=== PATIENT | male | born 1955 | race Caucasian/White ===

== ENCOUNTER → 2017-01-14 | Outpatient (CLI) | payer MEDICARE ==
[~2017-01-14] MED LIST: AMLO1CAP31 PO; ASP325TEC PO; ATOR20TA66 PO; CARV25TA PO; HYDR-3714 PO; HYDR25TA4 PO; MECL-124 PO; MULT VIT; OMEP-10 GT; ONDA8TAB13 PO; REGADENOSON 0.4 MG/5 ML SYR (LEXISCAN) IV ONE; TRAM50TA2 PO; VIT B
--- OUTSIDE RECORDS SUMMARY | 2017-01-14 10:32 | XMS REPORT | Continuity of Care Document ---
Author Author [facility] Organization [facility] Address Unknown Phone Unavailable Care Team Providers Care Mattress Spring Encaser Name Role Phone NO, LOCAL PHYSICIAN PCP Unavailable Insurance Providers Payer Name Policy Number Subscriber Name Relationship [facility] [id number] Nicole Rayo Self / Same As Patient Advance Directives Directive Response Recorded Date/Time Advance Directives No 03/20/15 12:33pm Resuscitation Status Full Code 03/20/15 12:33pm Problems Medical Problems Problem Onset Date Status Minor head injury without loss of consciousness Unknown Active Vertigo Unknown Active Volume depletion Unknown Active Medications Medication Dose Route Sig Days/Qty Instructions Order Date Discontinued Date Status Aspirin 325 Mg PO DAILY 09/09/14 Active Carvedilol (Coreg) 1 Each PO TWICE A DAY 09/09/14 Active Hydrochlorothiazide 25 Mg PO DAILY 09/09/14 Active Atorvastatin 40 Mg PO 09/09/14 Active Amlodipine/Benazepril HCl 1 Each PO DAILY 09/09/14 Active [Mult Vit] 09/09/14 Active Omeprazole 20 Mg GT DAILY 09/09/14 Active [Vit B] 09/09/14 Active Meclizine HCl 1 Tab PO QID PRN PRN VERTIGO 20 Qty 03/20/15 Active Ondansetron 8 Mg PO EVERY 6 HOURS PRN NAUSEA/VOMITING 10 Qty 03/20/15 Active Acetaminophen/Hydrocodone Bitart 1 Each PO Q4HR PRN PRN PAIN 14 Qty 15 03/20/15 Discontinued Tramadol Hcl 50 Mg PO EVERY 4HRS PRN PAIN 14 Qty 03/20/15 Active Social History Social History Problem Response Recorded Date/Time Alcohol Use Occasionally Uses 03/20/2015 12:33pm Recreational Drug Use No 03/20/2015 12:33pm Recent Foreign Travel No 03/20/2015 12:30pm Recent Infectious Disease Exposure No 03/20/2015 12:30pm Hospitalization with Isolation Denies 03/20/2015 12:30pm Smoking Status Current Everyday Smoker 03/20/2015 12:33pm Query Response Start Date Stop Date Smoking Status Current Everyday Smoker Hospital Discharge Instructions No hospital discharge instructions. Plan of Care No plan of care. Functional Status No functional status results. Allergies, Adverse Reactions, Alerts Allergen Type Severity Reaction Status Last Updated No Known Allergies Allergy Unknown Active 06/04/06 Immunizations Name Given Type Tetanus Booster (TDap) Unknown Historical Vital Signs Acute Vital Signs Vital Response Date/Time Temperature (Fahrenheit) 97.6 degrees F (97.6 - 99.5) Temperature (Calculated Celsius) 36.36552 degrees C (36.4 - 37.5) Temperature Source Temporal Pulse Rate (adult) 62 bpm (60 - 90) Respiratory Rate 18 bpm (12 - 24) O2 Sat by Pulse Oximetry 93 % (88 - 100) Blood Pressure 103/61 mm Hg Blood Pressure Systolic (Adolescent 12-19yrs) 61 mm Hg (115 - 120) Blood Pressure 117/67 mm Hg Blood Pressure 110/67 mm Hg Pain Pain Intensity 7 Height (Feet) 5 feet Height (Inches) 8 inches Height (Calculated Centimeters) 172.668111 cm Weight (Pounds) 180 pounds Weight (Calculated Grams) 20981.627 gm Weight (Calculated Kilograms) 81.835321 kilograms Calculated BMI 27.37 Results Laboratory Results Test Name Result Units Flags Reference Collection Date/Time Result Date/ Time Comments White Blood Count 11.1 10^3/uL H 4.3-11.0 03/20/2015 2:05pm 03/20/2015 2: 47pm Red Blood Count 5.62 10^6/uL 4.35-5.85 03/20/2015 2:05pm 03/20/2015 2: 47pm Hemoglobin 16.8 G/DL 13.3-17.7 03/20/2015 2:05pm 03/20/2015 2:47pm Hematocrit 49 % 40-54 03/20/2015 2:05pm 03/20/2015 2:47pm Mean Corpuscular Volume 86 FL 80-99 03/20/2015 2:05pm 03/20/2015 2: 47pm Mean Corpuscular Hemoglobin 30 PG 25-34 03/20/2015 2:05pm 03/20/2015 2: 47pm Mean Corpuscular Hemoglobin Concent 35 G/DL 32-36 03/20/2015 2:05pm 10/2015 2:47pm Red Cell Distribution Width 13.2 % 10.0-14.5 03/20/2015 2:05pm 2014 2:47pm Platelet Count 295 10^3/uL 130-400 03/20/2015 2:05pm 03/20/2015 2:47pm Mean Platelet Volume 10.0 FL 7.4-10.4 03/20/2015 2:05pm 03/20/2015 2: 47pm Neutrophils (%) (Auto) 63 % 42-75 03/20/2015 2:05pm 03/20/2015 2:47pm Lymphocytes (%) (Auto) 24 % 12-44 03/20/2015 2:05pm 03/20/2015 2:47pm Monocytes (%) (Auto) 8 % 0-12 03/20/2015 2:05pm 03/20/2015 2:47pm Eosinophils (%) (Auto) 5 % 0-10 03/20/2015 2:05pm 03/20/2015 2:47pm Basophils (%) (Auto) 0 % 0-10 03/20/2015 2:05pm 03/20/2015 2:47pm Neutrophils # (Auto) 7.1 X 10^3 1.8-7.8 03/20/2015 2:05pm 03/20/2015 2: 47pm Lymphocytes # (Auto) 2.6 X 10^3 1.0-4.0 03/20/2015 2:05pm 03/20/2015 2: 47pm Monocytes # (Auto) 0.9 X 10^3 0.0-1.0 03/20/2015 2:05pm 03/20/2015 2: 47pm Eosinophils # (Auto) 0.5 10^3/uL H 0.0-0.3 03/20/2015 2:05pm 03/20/2015 2 :47pm Basophils # (Auto) 0.0 10^3/uL 0.0-0.1 03/20/2015 2:05pm 03/20/2015 2: 47pm Urine Color YELLOW 03/20/2015 2:44pm 03/20/2015 3:09pm Urine Clarity CLEAR 03/20/2015 2:44pm 03/20/2015 3:09pm Urine pH 7 5-9 03/20/2015 2:44pm 03/20/2015 3:09pm Urine Specific [place] 1.010 * 1.016-1.022 03/20/2015 2:44pm 2014 3:09pm Urine Protein NEGATIVE NEGATIVE 03/20/2015 2:44pm 03/20/2015 3:09pm Urine Glucose (UA) NEGATIVE NEGATIVE 03/20/2015 2:44pm 03/20/2015 3: 09pm Urine RBC (Auto) NEGATIVE NEGATIVE 03/20/2015 2:44pm 03/20/2015 3: 09pm Urine Ketones NEGATIVE NEGATIVE 03/20/2015 2:44pm 03/20/2015 3:09pm Urine Nitrite NEGATIVE NEGATIVE 03/20/2015 2:44pm 03/20/2015 3:09pm Urine Bilirubin NEGATIVE NEGATIVE 03/20/2015 2:44pm 03/20/2015 3: 09pm Urine Urobilinogen NORMAL MG/DL NORMAL 03/20/2015 2:44pm 03/20/2015 3: 09pm Urine Leukocyte Esterase NEGATIVE NEGATIVE 03/20/2015 2:44pm 2014 3:09pm Urine RBC RARE /HPF 03/20/2015 2:44pm 03/20/2015 3:09pm Urine WBC NONE /HPF 03/20/2015 2:44pm 03/20/2015 3:09pm Urine Bacteria NEGATIVE /HPF 03/20/2015 2:44pm 03/20/2015 3:09pm Urine Squamous Epithelial Cells RARE /HPF 03/20/2015 2:44pm 2014 3:09pm Urine Crystals NONE /LPF 03/20/2015 2:44pm 03/20/2015 3:09pm Urine Casts NONE /LPF 03/20/2015 2:44pm 03/20/2015 3:09pm Urine Mucus SMALL /LPF * 03/20/2015 2:44pm 03/20/2015 3:09pm Urine Culture Indicated NO 03/20/2015 2:44pm 03/20/2015 3:09pm Sodium Level 138 MMOL/L 135-145 03/20/2015 2:03/20/2015 3:01pm Potassium Level 4.0 MMOL/L 3.6-5.0 03/20/2015 2:05pm 03/20/2015 3:01pm Chloride Level 106 MMOL/L 98-107 03/20/2015 2:03/20/2015 3:01pm Carbon Dioxide Level 25 MMOL/L 21-32 03/20/2015 2:03/20/2015 3: 01pm Blood Urea Nitrogen 17 MG/DL 7-18 03/20/2015 2:pm 03/20/2015 3:01pm Creatinine 1.03 MG/DL 0.60-1.30 03/20/2015 2:05pm 03/20/2015 3:01pm BUN/Creatinine Ratio 17 03/20/2015 2:0503/20/2015 3:01pm Estimat Glomerular Filtration Rate > 60 03/20/2015 2:2014 3:01pm GFR INTERPRETIVE DATA UNITS FOR ESTIMATED GFR (eGFR): mL/min/1.73 M2 REFERENCE RANGE FOR ESTIMATED GFR (eGFR) eGFR NORMAL eGFR >60 MODERATELY DECREASED eGFR 30-59 SEVERLY DECREASED eGFR 15-29 KIDNEY FAILURE <15 (OR DIALYSIS) Glucose Level 105 MG/DL 70-105 03/20/2015 2:05pm 03/20/2015 3:01pm Calcium Level 9.6 MG/DL 8.5-10.1 03/20/2015 2:03/20/2015 3:01pm Magnesium Level 2.0 MG/DL 1.8-2.4 03/20/2015 2:03/20/2015 3:01pm Total Bilirubin 0.5 MG/DL 0.1-1.0 03/20/2015 2:03/20/2015 3:01pm Alkaline Phosphatase 75 U/L 40-136 03/20/2015 2:pm 03/20/2015 3:01pm Aspartate Amino Transf (AST/SGOT) 33 U/L 5-34 03/20/2015 2:05pm 2014 3:01pm Alanine Aminotransferase (ALT/SGPT) 37 U/L 0-55 03/20/2015 2:05pm 03/20 3:01pm Troponin I < 0.30 NG/ML <0.30 03/20/2015 2:05pm 03/20/2015 3:20pm Total Protein 6.9 G/DL 6.4-8.2 03/20/2015 2:05pm 03/20/2015 3:01pm Albumin 3.8 G/DL 3.2-4.5 03/20/2015 2:05pm 03/20/2015 3:01pm TSH [place] Testing 0.95 UIU/ML 0.35-4.94 03/20/2015 2:05pm 03/20/2015 3:20pm Procedures Procedure Status Date Provider(s) Tracing only of electrocardiogram completed 03/20/15 HAIDER RODRÍGUEZ Encounters Encounter Location Date/Time Departed Emergency Room Via [facility] 03/20/15 12:23pm Recent Diagnosis
--- NOTE | 2017-01-15 08:13 | ECHOCARDIOGRAPHY REPORT ---
PROCEDURE PHYSICIAN: TAMAR GARCIA DATE OF PROCEDURE: 01/14/2017 TWO DIMENSIONAL ECHOCARDIOGRAM REPORT PRIMARY PHYSICIAN: OTHER PHYSICIAN: REFERRING PHYSICIAN: Johnson Murillo MD ORDERING PHYSICIAN: INDICATION FOR THE PROCEDURE: 1. Coronary artery disease. 2. Congestive heart failure. MEASUREMENTS DERIVED VALUES LV DIAMETER (LAX) NORMALS NORMALS Diastolic 5.3 (3.6-5.2) Eject. Fract. 45% (60%+/-6%) Systolic (2.3-3.9) Diastolic Vol. % Shortening (0.22-0.42) Systolic Vol. Aortic Root IVS THICKNESS Diastolic 1.1 (0.6-1.1) LVPW THICKNESS Diastolic 1 (0.6-1.1) LA DIAMETER Systolic 3.5 (2.1-3.7) FINDINGS: 1. Technical quality is good. 2. The left ventricle is normal in size. Diffuse left ventricular hypokinesia was noted more pronounced at the lateral wall. Systolic function is reduced. Estimated ejection fraction 45%. 3. The left atrium is normal in size. No clot or thrombus were seen within the left atrium. 4. The right atrium and right ventricle are normal in size. No clot or thrombus were seen within the right side. 5. Mitral valve is normal in morphology with mild mitral regurgitation noted by color Doppler flow. No mitral valve prolapse. No mitral valve stenosis. 6. Aortic valve is trileaflet with normal opening and closing pattern. No significant aortic stenosis or regurgitation was seen. 7. Tricuspid valve is normal in morphology with mild tricuspid regurgitation noted by color Doppler flow. Doppler across tricuspid valve estimated pulmonary artery pressure of 29+ right atrial pressure. 8. Pulmonic valve is functioning normally. 9. No pericardial effusion. IN CONCLUSION: 1. Normal left ventricular size, diffuse left ventricular hypokinesia. Estimated ejection fraction 45%. 2. Mild mitral regurgitation. Mild tricuspid regurgitation. 3. Estimated pulmonary artery pressure of 35 mmHg. Job ID: [id number] Dictated Date: 01/14/2017 17:04:48 Front Desk Monitor Date: 01/15/2017 08:10:15 / tbk
== END ==
LOC: CARD 10:28
PROVIDERS: ATTEND Internal Medicine Cardiovascular Disease
DX: I25.10 Atherosclerotic heart disease of native coronary artery without angina pectoris (principal); I11.0 Hypertensive heart disease with heart failure; I50.9 Heart failure, unspecified; E78.5 Hyperlipidemia, unspecified; Z72.0 Tobacco use
CPT/HCPCS: 93306

== ENCOUNTER → 2017-01-19 | Outpatient (CLI) | payer MEDICARE ==
[~2017-01-19] MED LIST changes: +CATHETER FLUSH 10 ML SYR IV PRN
--- OUTSIDE RECORDS SUMMARY | 2017-01-19 07:06 | XMS REPORT | Continuity of Care Document ---
Author Author [facility] Organization [facility] Address Unknown Phone Unavailable Care Team Providers Care Inspector Tester Sorter Name Role Phone NO, LOCAL PHYSICIAN PCP Unavailable Insurance Providers Payer Name Policy Number Subscriber Name Relationship [facility] [id number] Nicole Rayo Self / Same As Patient [...] F (97.6 - 99.5) Temperature (Calculated Celsius) 36.54067 degrees C (36.4 - 37.5) Temperature Source [...] Height (Inches) 8 inches Height (Calculated Centimeters) 172.907634 cm Weight (Pounds) 180 pounds Weight (Calculated Grams) 99500.627 gm Weight (Calculated Kilograms) 81.317439 kilograms Calculated BMI 27.37 Results Laboratory Results [...] 5-9 03/20/2015 2:44pm 03/20/2015 3:09pm Urine Specific [place] 1.010 * 1.016-1.022 03/20/2015 2:44pm 2014 3:09pm [...] G/DL 3.2-4.5 03/20/2015 2:05pm 03/20/2015 3:01pm TSH [place] Testing 0.95 UIU/ML 0.35-4.94 03/20/2015 2:05pm 03/20/2015 3:20pm Procedures Procedure Status Date Provider(s) Tracing only of electrocardiogram completed 03/20/15 HAIDER RODRÍGUEZ Encounters Encounter Location Date/Time Departed Emergency Room [facility] 03/20/15 12:23pm Recent Diagnosis
[2017-01-19 09:10] VITALS: BP 147/95
[2017-01-19 09:18] VITALS: BP 145/84
[2017-01-19 09:20] VITALS: BP 145/76
--- NOTE | 2017-01-20 11:10 | STRESS TEST ---
PROCEDURE PHYSICIAN: TAMAR GARCIA DATE OF PROCEDURE: 01/19/2017 LEXISCAN MYOVIEW STRESS TEST REPORT: REFERRING PHYSICIAN: Dr. Johnson Murillo BASELINE HEART RATE IS: 57 BASELINE BLOOD PRESSURE: 147/95 BASELINE EKG: Sinus rhythm with no ischemic changes. IN SUMMARY: The patient was injected with 10.27 mCi of technetium 99 Myoview and the resting images were obtained. Then the patient received 0.4 mg of Lexiscan followed by 28.4 mCi of technetium 99 Myoview. Throughout the test, there were no EKG changes. The resting and stress images were reviewed and compared in the short axis, horizontal long axis, and vertical long axis views. Review of the images showed diaphragmatic attenuation with decreased uptake involving the whole inferior wall, inferolateral wall and anterolateral wall, with mild reversibility. SSS is 26, SDS 3, TID value is 0.97. On the gated images, the left ventricle appeared to be dilated with end-diastolic volume 139 mL. End-systolic volume 81 mL. Hypokinesia involving the whole inferior wall, inferolateral wall and anterolateral wall, but there is still some residual contractility at the inferior wall and inferolateral wall. Calculated ejection fraction 42%. IN CONCLUSION: 1. The patient tolerated Lexiscan well. 2. 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 3. Dilated left ventricle with hypokinesia involving the whole inferior wall, inferolateral wall, with still some residual contractility in that area. Calculated ejection fraction 42%. Job ID: [id number] Dictated Date: 01/19/2017 17:19:11 Monomer Purification Operator Date: 01/20/2017 11:07:36 / josse
== END ==
LOC: CARD 07:03
PROVIDERS: ATTEND Internal Medicine Cardiovascular Disease
DX: I25.10 Atherosclerotic heart disease of native coronary artery without angina pectoris (principal); I11.0 Hypertensive heart disease with heart failure; I50.9 Heart failure, unspecified; E78.5 Hyperlipidemia, unspecified; Z72.0 Tobacco use
CPT/HCPCS: 78452; 93017

== ENCOUNTER → 2017-10-22 | Outpatient (CLI) | payer MEDICARE ==
[~2017-10-22] MED LIST changes: +AMLO10TA2 PO; +ASPI-808 PO; +ATOR40TA70 PO; -CATHETER FLUSH 10 ML SYR IV PRN; +DOCU-143 PO; +FAMO20TA3 PO; +HYDR-3812 PO; +LISI-552 PO; +POTASSIUM CHLORIDE PO; -REGADENOSON 0.4 MG/5 ML SYR (LEXISCAN) IV ONE; +SERT50TA9 PO; +VITA1TAB17 PO
== END ==
LOC: PREOP 05:55
PROVIDERS: ATTEND Surgery
DX: Z01.818 Encounter for other preprocedural examination (principal); C44.629 Squamous cell carcinoma of skin of left upper limb, including shoulder

== ENCOUNTER 2017-10-23 07:06 | Day surgery (SDC) | payer MEDICARE ==
[~2017-10-23] VITALS: Ht 172.7 cm; Wt 85.7 kg
[~2017-10-23 07:06] MED LIST changes: -AMLO10TA2 PO; -ASPI-808 PO; -ATOR40TA70 PO; -DOCU-143 PO; -FAMO20TA3 PO; -HYDR-3812 PO; -LISI-552 PO; -POTASSIUM CHLORIDE PO; -SERT50TA9 PO; -VITA1TAB17 PO
[2017-10-23] MEDS ORDERED: CATHETER FLUSH 10 ML SYR IV PRN (07:30)
[2017-10-23] MEDS ORDERED: ceFAZolin 2 GM/NS 50 ML IV ONE (07:30)
[2017-10-23] MEDS ORDERED: VITA1TAB17 PO ×2 (07:53)
[2017-10-23] MEDS ORDERED: AMLO10TA2 PO ×2 (07:53)
[2017-10-23] MEDS ORDERED: FAMO20TA3 PO ×2 (07:53)
[2017-10-23] MEDS ORDERED: ATOR40TA70 PO ×2 (07:53)
[2017-10-23] MEDS ORDERED: LISI-552 PO ×2 (07:53)
[2017-10-23] MEDS ORDERED: HYDR25TA4 PO ×2 (07:53)
[2017-10-23] MEDS ORDERED: SERT50TA9 PO ×2 (07:53)
[2017-10-23] MEDS ORDERED: CARV25TA PO ×2 (07:53)
[2017-10-23] MEDS ORDERED: ASPI-808 PO ×2 (07:53)
[2017-10-23 07:56] VITALS: BP 140/86
[2017-10-23] MEDS ORDERED: LACTATED RINGERS 1,000 ML IV PRN (08:10)
[2017-10-23] MEDS ORDERED: POTASSIUM CHLORIDE PO ×2 (08:12)
[2017-10-23] MEDS ORDERED: MIDAZOLAM 2 MG/2 ML (VERSED) VIAL ONE (08:14)
[2017-10-23] MEDS ORDERED: LIDOCAINE PF 2% 5 ML (XYLOCAINE) VIAL ONE (08:14)
[2017-10-23] MEDS ORDERED: proPOfol 200 MG/20 ML (DIPRIVAN) VIAL IV ONE (08:14)
[2017-10-23] MEDS ORDERED: fentaNYL INJECTION 100 MCG/2 ML AMP ONE (08:15)
[2017-10-23] MEDS ORDERED: SEVOFLURANE (ULTANE) 15 ML INHAL SOLN ONE (08:17)
--- NOTE | 2017-10-23 08:18 | Progress Note-Pre Operative ---
Pre-Operative Progress Note H&P Reviewed The H&P was reviewed, patient examined and no changes noted. 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
[2017-10-23] MEDS ORDERED: LIDOCAINE 1% INJ 20 ML (XYLOCAINE) VIAL ONE (08:57)
[2017-10-23] MEDS ORDERED: BUP/EPI 0.5% 1:200,000 (MARCAINE) 10ML VIAL IJ ONE (08:58)
[2017-10-23] MEDS ORDERED: BUPIVACAINE 0.5% 30 ML (SENSORCAINE) VIAL ONE (08:58)
[2017-10-23] MEDS ORDERED: HYDR-3812 PO ×2 (10:54)
[2017-10-23] MEDS ORDERED: DOCU-143 PO ×2 (10:54)
--- NOTE | 2017-10-23 10:57 | Discharge Inst-Simple/Standard ---
Discharge Inst-Standard Discharge Medications New, Converted or Re-Newed RX: RX on Chart Patient Instructions/Follow Up Plan of Care/Instructions/FU: Follow up with outpatient wound care on Thursday for wound vac change. Follow up with DR. Darby 2-3 weeks. Activity as Tolerated: No Discharge Diet: Regular Diet Other Inst to Patient Follow up Appt: Make appointment for 2-3 week Mehnaz Instructions: No lifting greater than 10 pounds. No strenuous activity. May shower in 24 hours, no tub bath or soaking. Use incentive spirometer at home as directed. No Smoking Skin/Wound Care: Wound vac to be changed by outpatient wound care on Thursday. Symptoms to Report: Appetite Changes, Extremity Discoloration, Numbness/Tingling, Swelling Increased , Bleeding Excessive, Eyesight Changes, Pain Increased, Urine Color Change, Constipation(Persistent), Fever over 101 degree F, Pain/Pressure in chest, Urinating Difficulty, Cough Up/Vomit Blood, Heart Beat Irreg/Pounding, Pain/ Pressure in jaw, Vaginal Bleeding Increase, Cramps in feet or legs, Lightheadedness, Pain/Pressure in shoulder, Diarrhea(Persistent), Memory Changes Suddenly, Questions/Concerns, Weight gain consecutive days, Dizziness/ Fainting, Nausea/Vomiting, Shortness of Breath, Weight gain over 2 pounds If questions or concerns contact your physician Or seek help at emergency department. NYA DARBY DO Oct 23, 2017 10:57
--- NOTE | 2017-10-23 10:59 | Progress Note-Post Operative ---
Post-Operative Progess Note Surgeon (s)/All Terrain Vehicle Racer (s) Surgeon NYA BLACKBURN DO All Terrain Vehicle Racer: na Pre-Operative Diagnosis Squamous Cell Carcinoma Left Hand Post-Operative Diagnosis same Procedure & Operative Findings Date of Procedure 10/23/17 Procedure Performed/Findings excision left hand squamous cell carcinoma and application of wound vac Anesthesia Type general Estimated Blood Loss Estimated blood loss (mL): minimal Specimens/Packing Specimens Removed hand lesion left hand NYA BLACKBURN DO Oct 23, 2017 10:59
[2017-10-23] MEDS ORDERED: ONDANSETRON 4 MG/2 ML (SDV) Z0FRAN IVP PRN (11:15)
[2017-10-23] MEDS ORDERED: morphine INJ 10 MG/ML 1ML (SYR OR VIAL) IVP PRN (11:15)
[2017-10-23 12:00] VITALS: BP 124/70
[2017-10-23 12:30] VITALS: BP 112/54
--- NOTE | 2017-10-24 02:20 | OPERATIVE REPORT ---
DATE OF SERVICE: 10/23/2017 PREOPERATIVE DIAGNOSIS: Squamous cell carcinoma, left hand. POSTOPERATIVE DIAGNOSIS: Squamous cell carcinoma, left hand. PROCEDURE PERFORMED: Excision of left hand squamous cell carcinoma, 4.6 x 4.4 cm and application of wound VAC 4.4 x 4.2 x 0.3 cm. SURGEON: Nya Darby DO. ANESTHESIA: General. ESTIMATED BLOOD LOSS: Minimal. COMPLICATIONS: None. INDICATIONS: The patient is a 62-year-old male with a lesion on the left dorsum of the hand, which has increased in size over the last approximately 1 month. He had biopsy demonstrating squamous cell carcinoma. He understands risks and benefits of procedure and wished to proceed with procedure. Consent was signed and on the chart. DESCRIPTION OF PROCEDURE: The patient was taken to the operating suite, was prepped and draped in sterile fashion. Surgical pause was performed. Local anesthetic of 0.5% Marcaine and 1% lidocaine 50:50 ratio was used to anesthetize the area. A tourniquet was turned on, which tourniquet time was 11 minutes. A circular incision was made around the lesion, taking skin and subcutaneous tissues. Both of 15-blade scalpel and cautery were used. Once this was removed, it was labeled with a long suture lateral and short suture superior. This was sent to pathology for evaluation on a frozen section. The tourniquet was let down and hemostasis had been achieved. Once Pathology noted that the lesion was completely excised, a wound VAC was applied in the usual fashion, first using white foam it was cut to fit into the wound, which measured 4.4 x 4.2 x 0.3 cm depth. An ostomy ring placed around the wound nad had black foam on top and then the wound VAC applied in the usual fashion. This was applied after the area was irrigated, washed and dried. The patient tolerated procedure well without any complications and was taken to the recovery room in stable condition. RECOMMENDATIONS: The patient will follow up with the Wound Care on an outpatient basis. We will see how the wound continues to do and may need skin grafting later. Job ID: [id number] DocumentID: [id number] Dictated Date: 10/23/2017 17:15:09 Fitter / Welder Date: 10/24/2017 02:20:10 Dictated By: NYA DARBY DO [facility]
== END 2017-10-23 13:02 | disposition home or self-care (01) ==
LOC: SDC 07:06
PROVIDERS: ATTEND Surgery
DX: C44.629 Squamous cell carcinoma of skin of left upper limb, including shoulder (principal); I25.10 Atherosclerotic heart disease of native coronary artery without angina pectoris; I11.0 Hypertensive heart disease with heart failure; I50.9 Heart failure, unspecified; F17.210 Nicotine dependence, cigarettes, uncomplicated; Z95.5 Presence of coronary angioplasty implant and graft; Z79.82 Long term (current) use of aspirin; Z79.899 Other long term (current) drug therapy
CPT/HCPCS: 87081

== ENCOUNTER → 2017-10-26 | Outpatient (CLI) | payer MEDICARE ==
[~2017-10-26] MED LIST changes: +AMLO10TA2 PO; +ASPI-808 PO; +ATOR40TA70 PO; +DOCU-143 PO; +FAMO20TA3 PO; +HYDR-3812 PO; +LISI-552 PO; +POTASSIUM CHLORIDE PO; +SERT50TA9 PO; +VITA1TAB17 PO
== END ==
LOC: WOUNDCARE 13:53
PROVIDERS: ATTEND Surgery
DX: S61.402A Unspecified open wound of left hand, initial encounter (principal); C44.629 Squamous cell carcinoma of skin of left upper limb, including shoulder; T65.222A Toxic effect of tobacco cigarettes, intentional self-harm, initial encounter
CPT/HCPCS: 11042; 97605

== ENCOUNTER → 2017-10-28 | Outpatient (CLI) | payer MEDICARE | LOC: WOUNDCARE 15:39 | PROVIDERS: ATTEND Surgery | DX: S61.402A Unspecified open wound of left hand, initial encounter (principal); C44.629 Squamous cell carcinoma of skin of left upper limb, including shoulder; T65.222A Toxic effect of tobacco cigarettes, intentional self-harm, initial encounter | CPT/HCPCS: 99213 ==

== ENCOUNTER → 2017-11-03 | Outpatient (CLI) | payer MEDICARE | LOC: WOUNDCARE 15:02 | PROVIDERS: ATTEND Surgery | DX: S61.402A Unspecified open wound of left hand, initial encounter (principal); C44.629 Squamous cell carcinoma of skin of left upper limb, including shoulder; T65.222A Toxic effect of tobacco cigarettes, intentional self-harm, initial encounter | CPT/HCPCS: 11042; 87070; 87075; 87205 ==

== ENCOUNTER → 2017-11-10 | Outpatient (CLI) | payer MEDICARE ==
[~2017-11-10] MED LIST changes: +ACHD5005 PO; -HYDR-3812 PO
== END ==
LOC: WOUNDCARE 15:05
PROVIDERS: ATTEND Surgery
DX: S61.402A Unspecified open wound of left hand, initial encounter (principal); C44.629 Squamous cell carcinoma of skin of left upper limb, including shoulder; T65.222A Toxic effect of tobacco cigarettes, intentional self-harm, initial encounter; X58.XXXA Exposure to other specified factors, initial encounter
CPT/HCPCS: 11042

== ENCOUNTER → 2017-11-16 | Outpatient (CLI) | payer MEDICARE | LOC: WOUNDCARE 14:57 | PROVIDERS: ATTEND Surgery | DX: S61.402A Unspecified open wound of left hand, initial encounter (principal); C44.629 Squamous cell carcinoma of skin of left upper limb, including shoulder ==

== ENCOUNTER → 2017-11-23 | Outpatient (CLI) | payer MEDICARE | LOC: WOUNDCARE 10:14 | PROVIDERS: ATTEND Surgery | DX: S61.402A Unspecified open wound of left hand, initial encounter (principal); C44.629 Squamous cell carcinoma of skin of left upper limb, including shoulder; T65.222A Toxic effect of tobacco cigarettes, intentional self-harm, initial encounter | CPT/HCPCS: 11042 ==

== ENCOUNTER → 2017-12-09 | Outpatient (CLI) | payer MEDICARE | LOC: WOUNDCARE 12:58 | PROVIDERS: ATTEND Surgery | DX: S61.042A Puncture wound with foreign body of left thumb without damage to nail, initial encounter (principal); C44.629 Squamous cell carcinoma of skin of left upper limb, including shoulder; T65.222A Toxic effect of tobacco cigarettes, intentional self-harm, initial encounter | CPT/HCPCS: 11042 ==

== ENCOUNTER → 2017-12-14 | Outpatient (CLI) | payer MEDICARE | LOC: WOUNDCARE 15:14 | PROVIDERS: ATTEND Surgery | DX: S61.402A Unspecified open wound of left hand, initial encounter (principal); C44.629 Squamous cell carcinoma of skin of left upper limb, including shoulder; T65.222A Toxic effect of tobacco cigarettes, intentional self-harm, initial encounter | CPT/HCPCS: 99212 ==

== ENCOUNTER 2018-08-29 13:03 | Emergency (ER) | payer MEDICARE ==
[~2018-08-29] VITALS: Ht 175.3 cm; Wt 77.1 kg
[~2018-08-29 13:03] MED LIST changes: -AMLO10TA2 PO; +AMLO10TA6 PO
--- OUTSIDE RECORDS SUMMARY | 2018-08-29 13:08 | XMS REPORT | Continuity of Care Document ---
Author Author [facility] Organization [facility] Address Unknown Phone Unavailable Allergies Active Description Code Type Severity Reaction Onset Reported/Identified Relationship to Patient Clinical Status Yes NKANo Known Allergies NKA Miscellaneous Allergy Unknown N/A 06/04/2006 Medications There is no data. Problems Date Dx Coded Attending Type Code Diagnosis Diagnosed By 09/09/2014 GYPSY VARGAS MD Ot 305.1 TOBACCO USE DISORDER 09/09/2014 GYPSY VARGAS MD Ot 401.9 HYPERTENSION NOS 09/09/2014 GYPSY VARGAS MD Ot 425.4 PRIM CARDIOMYOPATHY NEC 09/09/2014 GYPSY VARGAS MD Ot 785.1 PALPITATIONS 09/09/2014 GYPSY VARGAS MD Ot V45.02 AUTO IMPLANTABLE CARDIAC DEFIBRILLATOR I 09/09/2014 GYPSY VARGAS MD Ot V45.81 AORTOCORONARY BYPASS 03/20/2015 Ot 414.9 03/20/2015 Ot 428.0 03/20/2015 Ot V58.69 03/20/2015 HAIDER EDWARDS Ot 276.50 03/20/2015 HAIDER EDWARDS Ot 780.4 03/20/2015 HAIDER EDWARDS Ot 850.0 03/20/2015 HAIDER EDWARDS Ot 959.01 03/20/2015 HAIDER EDWARDS Ot E000.8 03/20/2015 HAIDER EDWARDS Ot E849.0 03/20/2015 HAIDER EDWARDS Ot E917.9 03/20/2015 Ot 414.9 03/20/2015 Ot 428.0 03/20/2015 Ot V58.69 03/23/2015 Ot 414.9 03/23/2015 Ot 428.0 03/23/2015 Ot V58.69 01/16/2017 TAMAR GARCIA MD Ot E78.5 HYPERLIPIDEMIA, UNSPECIFIED 01/16/2017 JOSE MD, BASHAR J Ot I11.0 HYPERTENSIVE HEART DISEASE WITH HEART FA 01/16/2017 TAMAR GARCIA MD J Ot I25.10 ATHSCL HEART DISEASE OF [place] CORONARY 01/16/2017 TAMAR GARCIA MD J Ot I50.9 HEART FAILURE, UNSPECIFIED 01/16/2017 TAMAR GARCIA MD J Ot Z72.0 TOBACCO USE 01/19/2017 TAMAR GARCIA MD J Ot I25.10 ATHSCL HEART DISEASE OF [place] CORONARY 01/20/2017 TAMAR GARCIA MD J Ot E78.5 HYPERLIPIDEMIA, UNSPECIFIED 01/20/2017 TAMAR GARCIA MD J Ot I11.0 HYPERTENSIVE HEART DISEASE WITH HEART FA 01/20/2017 TAMAR GARCIA MD Ot I25.10 ATHSCL HEART DISEASE OF [place] CORONARY 01/20/2017 TAMAR GARCIA MD J Ot I50.9 HEART FAILURE, UNSPECIFIED 01/20/2017 TAMAR GARCIA MD J Ot Z72.0 TOBACCO USE 02/04/2017 TAMAR GARCIA MD Ot E78.5 HYPERLIPIDEMIA, UNSPECIFIED 02/04/2017 TAMAR GARCIA MD J Ot I11.0 HYPERTENSIVE HEART DISEASE WITH HEART FA 02/04/2017 TAMAR GARCIA MD J Ot I25.10 ATHSCL HEART DISEASE OF [place] CORONARY 02/04/2017 TAMAR GARCIA MD J Ot I50.9 HEART FAILURE, UNSPECIFIED 02/04/2017 TAMAR GARCIA MD J Ot Z72.0 TOBACCO USE 02/10/2017 TAMAR GARCIA MD Ot E78.5 HYPERLIPIDEMIA, UNSPECIFIED 02/10/2017 TAMAR GARCIA MD J Ot I11.0 HYPERTENSIVE HEART DISEASE WITH HEART FA 02/10/2017 TAMAR GARCIA MD J Ot I25.10 ATHSCL HEART DISEASE OF [place] CORONARY 02/10/2017 TAMAR GARCIA MD J Ot I50.9 HEART FAILURE, UNSPECIFIED 02/10/2017 TAMAR GARCIA MD J Ot Z72.0 TOBACCO USE 10/21/2017 TAMAR GARCIA MD J Ot E78.5 HYPERLIPIDEMIA, UNSPECIFIED 10/21/2017 TAMAR GARCIA MD J Ot I11.0 HYPERTENSIVE HEART DISEASE WITH HEART FA 10/21/2017 TAMAR GARCIA MD J Ot I25.10 ATHSCL HEART DISEASE OF [place] CORONARY 10/21/2017 TAMAR GARCIA MD Ot I50.9 HEART FAILURE, UNSPECIFIED 10/21/2017 TAMAR GARCIA MD Ot Z72.0 TOBACCO USE 10/21/2017 TAMAR GARCIA MD Ot E78.5 HYPERLIPIDEMIA, UNSPECIFIED 10/21/2017 TAMAR GARCIA MD Ot I11.0 HYPERTENSIVE HEART DISEASE WITH HEART FA 10/21/2017 TAMAR GARCIA MD Ot I25.10 ATHSCL HEART DISEASE OF [place] CORONARY 10/21/2017 TAMAR GARCIA MD Ot I50.9 HEART FAILURE, UNSPECIFIED 10/21/2017 TAMAR GARCIA MD Ot Z72.0 TOBACCO USE 10/22/2017 TAMAR GARCIA MD Ot E78.5 HYPERLIPIDEMIA, UNSPECIFIED 10/22/2017 TAMAR GARCIA MD Ot I11.0 HYPERTENSIVE HEART DISEASE WITH HEART FA 10/22/2017 TAMAR GARCIA MD Ot I25.10 ATHSCL HEART DISEASE OF [place] CORONARY 10/22/2017 TAMAR GARCIA MD Ot I50.9 HEART FAILURE, UNSPECIFIED 10/22/2017 TAMAR GARCIA MD Ot Z72.0 TOBACCO USE 10/22/2017 TAMAR GARCIA MD Ot E78.5 HYPERLIPIDEMIA, UNSPECIFIED 10/22/2017 TAMAR GARCIA MD Ot I11.0 HYPERTENSIVE HEART DISEASE WITH HEART FA 10/22/2017 TAMAR GARCIA MD Ot I25.10 ATHSCL HEART DISEASE OF [place] CORONARY 10/22/2017 TAMAR GARCIA MD Ot I50.9 HEART FAILURE, UNSPECIFIED 10/22/2017 TAMAR GARCIA MD Ot Z72.0 TOBACCO USE 10/23/2017 NYA BLACKBURN DO Ot C44.629 SQUAMOUS CELL CARCINOMA SKIN/ LEFT UPPER 10/23/2017 NYA BLACKBURN DO Ot F17.210 NICOTINE DEPENDENCE, CIGARETTES, UNCOMPL 10/23/2017 NYA BLACKBURN DO Ot I11.0 HYPERTENSIVE HEART DISEASE WITH HEART FA 10/23/2017 NYA BLACKBURN DO Ot I25.10 ATHSCL HEART DISEASE OF [place] CORONARY 10/23/2017 NYA BLACKBURN DO Ot I50.9 HEART FAILURE, UNSPECIFIED 10/23/2017 BLACKBURN DO, NYA D Ot Z79.82 [facility] (CURRENT) USE OF ASPIRIN 10/23/2017 BLACKBURN DO, NYA D Ot 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 THERAPY 10/23/2017 BLACKBURN DO, NYA D Ot Z95.5 PRESENCE OF CORONARY ANGIOPLASTY IMPLANT 10/28/2017 BLACKBURN DO, NYA D Ot C44.629 SQUAMOUS CELL CARCINOMA SKIN/ LEFT UPPER 10/28/2017 BLACKBURN DONYA D Ot F17.210 NICOTINE DEPENDENCE, CIGARETTES, UNCOMPL 10/28/2017 BLACKBURN DOBROWNTT D Ot I11.0 HYPERTENSIVE HEART DISEASE WITH HEART FA 10/28/2017 BLACKBURN DOBROWNTT D Ot I25.10 ATHSCL HEART DISEASE OF [place] CORONARY 10/28/2017 NYA BLACKBURN DO D Ot I50.9 HEART FAILURE, UNSPECIFIED 10/28/2017 BLACKBURN DONYA D Ot 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 10/28/2017 NYA BLACKBURN DO D Ot Z79.899 OTHER [facility] (CURRENT) DRUG THERAPY 10/28/2017 NYA BLACKBURN DO D Ot Z95.5 PRESENCE OF CORONARY ANGIOPLASTY IMPLANT 10/29/2017 KILO DEE MD Ot C44.629 SQUAMOUS CELL CARCINOMA SKIN/ LEFT UPPER 10/29/2017 KILO DEE MD Ot S61.402A UNSPECIFIED OPEN WOUND OF LEFT HAND, INI 10/29/2017 KILO DEE MD Ot T65.222A TOXIC EFFECT OF TOBACCO CIGARETTES, SELF 11/04/2017 KILO DEE MD Ot C44.629 SQUAMOUS CELL CARCINOMA SKIN/ LEFT UPPER 11/04/2017 KILO DEE MD Ot S61.402A UNSPECIFIED OPEN WOUND OF LEFT HAND, INI 11/04/2017 KILO DEE MD Ot T65.222A TOXIC EFFECT OF TOBACCO CIGARETTES, SELF 11/09/2017 KILO DEE MD, Ot C44.629 SQUAMOUS CELL CARCINOMA SKIN/ LEFT UPPER 11/09/2017 KILO DEE MD Ot S61.402A UNSPECIFIED OPEN WOUND OF LEFT HAND, INI 11/09/2017 KILO DEE MD Ot T65.222A TOXIC EFFECT OF TOBACCO CIGARETTES, SELF 11/19/2017 KILO DEE MD, Ot C44.629 SQUAMOUS CELL CARCINOMA SKIN/ LEFT UPPER 11/19/2017 KILO DEE MD Ot S61.402A UNSPECIFIED OPEN WOUND OF LEFT HAND, INI 11/19/2017 KILO DEE MD Ot T65.222A TOXIC EFFECT OF TOBACCO CIGARETTES, SELF 11/24/2017 KILO DEE MD Ot C44.629 SQUAMOUS CELL CARCINOMA SKIN/ LEFT UPPER 11/24/2017 KILO DEE MD Ot S61.402A UNSPECIFIED OPEN WOUND OF LEFT HAND, INI 11/24/2017 KILO DEE MD Ot T65.222A TOXIC EFFECT OF TOBACCO CIGARETTES, SELF 11/24/2017 KILO DEE MD, Ot C44.629 SQUAMOUS CELL CARCINOMA SKIN/ LEFT UPPER 11/24/2017 KILO EDE MD Ot S61.402A UNSPECIFIED OPEN WOUND OF LEFT HAND, INI 11/24/2017 KILO DEE MD Ot T65.222A TOXIC EFFECT OF TOBACCO CIGARETTES, SELF 11/26/2017 KILO DEE MD, Ot C44.629 SQUAMOUS CELL CARCINOMA SKIN/ LEFT UPPER 11/26/2017 KILO DEE MD Ot S61.402A UNSPECIFIED OPEN WOUND OF LEFT HAND, INI 11/26/2017 KILO DEE MD Ot T65.222A TOXIC EFFECT OF TOBACCO CIGARETTES, SELF 12/10/2017 KILO DEE MD Ot C44.629 SQUAMOUS CELL CARCINOMA SKIN/ LEFT UPPER 12/10/2017 KILO DEE MD Ot S61.042A PNCTR W FOREIGN BODY OF LEFT THUMB W/O D 12/10/2017 KILO DEE MD Ot S61.402A UNSPECIFIED OPEN WOUND OF LEFT HAND, INI 12/10/2017 KILO DEE MD Ot T65.222A TOXIC EFFECT OF TOBACCO CIGARETTES, SELF 12/10/2017 KILO DEE MD Ot C44.629 SQUAMOUS CELL CARCINOMA SKIN/ LEFT UPPER 12/10/2017 KILO DEE MD Ot S61.042A PNCTR W FOREIGN BODY OF LEFT THUMB W/O D 12/10/2017 KILO DEE MD Ot T65.222A TOXIC EFFECT OF TOBACCO CIGARETTES, SELF 12/15/2017 KILO DEE MD Ot C44.629 SQUAMOUS CELL CARCINOMA SKIN/ LEFT UPPER 12/15/2017 KILO DEE MD Ot S61.402A UNSPECIFIED OPEN WOUND OF LEFT HAND, INI 12/15/2017 KILO DEE MD, Ot T65.222A TOXIC EFFECT OF TOBACCO CIGARETTES, SELF 12/15/2017 KILO DEE MD, Ot X58.XXXA EXPOSURE TO OTHER SPECIFIED FACTORS, INI 12/16/2017 KILO DEE MD, Ot C44.629 SQUAMOUS CELL CARCINOMA SKIN/ LEFT UPPER 12/16/2017 KILO DEE MD, Ot S61.402A UNSPECIFIED OPEN WOUND OF LEFT HAND, INI 12/16/2017 KILO DEE MD, Ot C44.629 SQUAMOUS CELL CARCINOMA SKIN/ LEFT UPPER 12/16/2017 KILO DEE MD, Ot S61.402A UNSPECIFIED OPEN WOUND OF LEFT HAND, INI 12/16/2017 KILO DEE MD, Ot T65.222A TOXIC EFFECT OF TOBACCO CIGARETTES, SELF 12/21/2017 KILO DEE MD, Ot C44.629 SQUAMOUS CELL CARCINOMA SKIN/ LEFT UPPER 12/21/2017 KILO DEE MD, Ot S61.402A UNSPECIFIED OPEN WOUND OF LEFT HAND, INI 12/21/2017 KILO DEE MD, Ot T65.222A TOXIC EFFECT OF TOBACCO CIGARETTES, SELF 12/31/2017 KILO DEE MD, Ot C44.629 SQUAMOUS CELL CARCINOMA SKIN/ LEFT UPPER 12/31/2017 KILO DEE MD, Ot S61.042A PNCTR W FOREIGN BODY OF LEFT THUMB W/O D 12/31/2017 KILO DEE MD, Ot T65.222A TOXIC EFFECT OF TOBACCO CIGARETTES, SELF 01/07/2018 KILO DEE MD, Ot C44.629 SQUAMOUS CELL CARCINOMA SKIN/ LEFT UPPER 01/07/2018 KILO DEE MD, Ot S61.402A UNSPECIFIED OPEN WOUND OF LEFT HAND, INI 01/07/2018 KILO DEE MD, Ot T65.222A TOXIC EFFECT OF TOBACCO CIGARETTES, SELF Procedures There is no data. Results Test Result Range Methicillin resistant Staphylococcus aureus (MRSA) screening culture - 07:34 Methicillin resistant Staphylococcus aureus (MRSA) screening culture NEG NRG Bacteria identification in isolate by anaerobe culture - 11/03/17 15:48 Bacteria identification in isolate by anaerobe culture NOANA NRG Gram stain microscopy - 11/03/17 15:48 GRAM STAIN RESULT FEW WBC'S, NO BACTERIA OBSERVED NRG Bacteria identification in wound by culture - 11/03/17 15:48 Bacteria identification in wound by culture [id number] NRG FREE TEXT EXTERNAL SENSITIVITY REPORTED AT 1025, 11-06-17 NRG QUANTITY OF GROWTH Scant Growth NRG FREE TEXT ENTRY 2 ORGANISM NRG Bacterial susceptibility panel - 11/03/17 15:48 Oxacillin susceptibility test by minimum inhibitory concentration < = NRG Gentamicin susceptibility test by minimum inhibitory concentration < = NRG Clindamycin susceptibility test by minimum inhibitory concentration >= NRG Erythromycin susceptibility test by minimum inhibitory concentration >= NRG Trimethoprim/sulfamethoxazole susceptibility test by minimum inhibitoryconcentration R NRG Vancomycin susceptibility test by minimum inhibitory concentration 1 NRG Levofloxacin susceptibility test by minimum inhibitory concentration <= NRG Rifampin susceptibility test by minimum inhibitory concentration <= NRG Tetracycline susceptibility test by minimum inhibitory concentration 2 NRG Encounters ACCT No. Visit Date/Time Discharge Status Pt. Type Provider Facility Loc./Unit Complaint [id number] 12/14/2017 15:14:00 12/14/2017 23:59:59 CLS Outpatient KILO DEE MD [facility] [id number] 12/09/2017 12:58:00 12/09/2017 23:59:59 CLS Outpatient KILO DEE MD [facility] [id number] 11/23/2017 10:14:00 11/23/2017 23:59:59 CLS Outpatient KILO DEE MD [facility] [id number] 11/16/2017 14:57:00 11/16/2017 23:59:59 CLS Outpatient KILO DEE MD [facility] [id number] 11/10/2017 15:05:00 11/10/2017 23:59:59 CLS Outpatient KILO DEE MD [facility] [id number] 11/03/2017 15:02:00 11/03/2017 23:59:59 CLS Outpatient KILO DEE MD [facility] [id number] 10/28/2017 15:39:00 10/28/2017 23:59:59 CLS Outpatient KILO DEE MD [facility] [id number] 10/26/2017 13:53:00 10/26/2017 23:59:59 CLS Outpatient KILO DEE MD [facility] [id number] 10/23/2017 07:06:00 10/23/2017 13:02:00 DIS Outpatient NYA BLACKBURN DO [facility] SDC SQUAMOUS CELL LT. HAND [id number] 10/22/2017 05:55:00 10/22/2017 23:59:59 CLS Outpatient BLACKBURN NYA CELESTE [facility] PREOP EXC. SQUAMOUS CELL CA LT. HAND [id number] 01/19/2017 07:03:00 01/19/2017 23:59:59 CLS Outpatient TAMAR GARCIA MD [facility] CARD CAD,CHF,HTN,LVH [id number] 01/14/2017 10:28:00 01/14/2017 23:59:59 CLS Outpatient TAMAR GARCIA MD [facility] CARD CAD,CHF,HTN,LVH [id number] 03/20/2015 12:23:00 03/20/2015 15:55:00 DIS Emergency HAIDER EDWARDS [facility] ER [id number] 09/09/2014 13:59:00 09/09/2014 15:35:00 DIS Emergency GYPSY VARGAS MD [facility] ER HEART ISSUES [id number] 08/29/2018 13:05:00 ACT Emergency DAILY SANCHES MD [facility] ER R KNEE PAIN [id number] 10/14/2010 08:43:00 Document Registration
--- NOTE | 2018-08-29 13:43 | Diagnostic Imaging Report ---
Indication: Right knee injury with pain. Comparison: None. Discussion: Three views of the right knee were obtained. Mild degenerative disease is noted within the medial compartment. No effusion. No fracture or dislocation. Alignment is anatomic. Soft tissues are unremarkable. Impression: 1. Mild right knee degenerative disease. Dictated by: Dictated on workstation # [id number]
--- NOTE | 2018-08-29 14:07 | ED Lower Extremity ---
General Chief Complaint: Lower Extremity Stated Complaint: R KNEE PAIN Nursing Triage Note: ARRIVED VIA WC WITH OWN CRUTCHES TO ROOM 06. STATES HE JUMPED OVER A FENCE WRONG YESTERDAY LANDING ON RIGHT KNEE. COMPLAINS OF PAIN AND SWELLING. Nursing Sepsis Screen: No Definite Risk History of Present Illness Date Seen by Provider: Aug 29, 2018 Time Seen by Provider: 13:10 Initial Comments 62-year-old male reports jumping over a fence yesterday evening, his right knee shifted and he had immediate onset of pain. He believes his patella possibly subluxated. Initially but is able to ambulate on the right leg but as time progressed, he had increasing pain and swelling. He was camping and had limited supplied, he wrapped duct tape around his knee, on the outside of his jeans to help with the swelling. He left this in place for 2-3 hours. He took Ibuprofen 400 mg with some improvement in his pain. He denies any previous history of injuries to his right knee. Onset: yesterday Pain/Injury Location: right knee Method of Injury: twisted Allergies and Home Medications Allergies Coded Allergies: NKANo Known Allergies (Verified Allergy, Unknown, 06/04/06) Home Medications Amlodipine Besylate 10 Mg Tablet, 10 MG PO DAILY, (Reported) Aspirin 325 Mg Tablet, 325 MG PO DAILY, (Reported) Atorvastatin Calcium 40 Mg Tablet, 40 MG PO DAILY, (Reported) Carvedilol 25 Mg Tablet, 25 MG PO BID, (Reported) Famotidine 20 Mg Tablet, 20 MG PO DAILY, (Reported) Hydrochlorothiazide 25 Mg Tablet, 25 MG PO DAILY, (Reported) Lisinopril 20 Mg Tablet, 20 MG PO DAILY, (Reported) Sertraline HCl 50 Mg Tablet, 50 MG PO DAILY, (Reported) Vitamin B Complex 1 Each Tablet, 1 EACH PO DAILY, (Reported) Patient Home Medication List Home Medication List Reviewed: Yes Review of Systems Constitutional: no symptoms reported, see HPI Musculoskeletal: see HPI, joint pain (right knee), joint swelling (right knee ) All Other Systems Reviewed Negative Unless Noted: Yes Past Gbelxsp-Tsfrmg-Pwjcfp Hx Past Med/Social Hx: Reviewed Nursing Past Med/Soc Hx Patient Social History Alcohol Use: Occasionally Uses Recreational Drug Use: No Smoking Status: Current Everyday Smoker Type Used: Cigarettes Recent Foreign Travel: No Contact w/Someone Who Travel: No Recent Infectious Disease Expo: No Recent Hopitalizations: No Immunizations Up To Date Tetanus Booster (TDap): Unknown Seasonal Allergies Seasonal Allergies: No Past Medical History Surgeries: Yes (STENT 2000, DEBRILLATOR 2011) Orthopedic Respiratory: No Cardiac: Yes (STENT, DEFIBRILLATOR) Coronary Artery Disease, Heart Attack, High Cholesterol, Hypertension Neurological: No Reproductive Disorders: No Genitourinary: No Gastrointestinal: Yes Gastroesophageal Reflux Musculoskeletal: No Endocrine: No Loss of Vision: Bilateral Hearing Impairment: Denies Cancer: Yes (SQUAMOUS CELL CA LEFT HAND) Skin Psychosocial: Yes Depression Integumentary: Yes (SQUAMOUS CELL CA LEFT HAND) Recent Skin Changes Blood Disorders: No Family Medical History No Pertinent Family Hx Physical Exam Vital Signs Vital Signs - First Documented 08/29/18 13:18 Temp 98.0 Pulse 90 Resp 16 B/P (MAP) 173/107 (129) Pulse Ox 96 O2 Delivery Room Air Capillary Refill : Less Than 3 Seconds Height, Weight, BMI Height: 5'9.00" Weight: 170lbs. 0.0oz. 77.855665qt; 28.7 BMI Method:Estimated General Appearance: WD/WN, no apparent distress Cardiovascular: normal peripheral pulses, regular rate, rhythm, no edema, no murmur Respiratory: chest non-tender, lungs clear, normal breath sounds, no respiratory distress Knees: right knee joint effusion (moderate), right knee pain, right knee soft tissue tenderness, right knee swelling, right knee other (range of motion 10-90 , trace medial laxity, and no pain over MCL. No pain with patellar compression or patellar mobility. Trace Lockman and anterior drawer, negative posterior drawer.) Neurologic/Psychiatric: no motor/sensory deficits, alert, normal mood/affect, oriented x 3 Progress/Results/Core Measures Results/Orders My Orders Orders - HALEY BRANDT Knee, Right, 3 Views (08/29/18 13:18) Vital Signs/I&O 08/29/18 08/29/18 13:18 14:20 Temp 98.0 98.0 Pulse 90 90 Resp 16 16 B/P (MAP) 173/107 (129) 173/107 (129) Pulse Ox 96 96 O2 Delivery Room Air Blood Pressure Mean: 129 Progress Progress Note : Time: 13:10 Progress Note Patient seen and evaluated, recommended x-rays of the right knee. Declined need for pain medication at this time. 1400 x-ray results reviewed with the patient, no acute abnormalities seen, mild degenerative changes noted in the medial compartment. 6 inch Dain wrap applied. Discharge instructions and return precautions reviewed with the patient. Diagnostic Imaging Diagonstic Imaging: Xray Plain Films/CT/US/NM/MRI: knee Comments NAME: ZOLTAN RAYO [facility] REC#: [id number] PT STATUS: REG ER : 1955 PHYSICIAN: HALEY BRANDT ADMIT DATE: 08/29/18/ER Draft Date of Exam:08/29/18 KNEE, RIGHT, 3 VIEWS Indication: Right knee injury with pain. Comparison: None. Discussion: Three views of the right knee were obtained. Mild degenerative disease is noted within the medial compartment. No effusion. No fracture or dislocation. Alignment is anatomic. Soft tissues are unremarkable. Impression: 1. Mild right knee degenerative disease. Dictated on workstation # [id number] Dict: 08/29/18 1339 Trans: 08/29/[address] [facility] [id number] Interpreted by: MAGED FISCHER MD Electronically signed by: Departure Impression Primary Impression: Sprain of knee Qualified Codes: S83.411A - Sprain of medial collateral ligament of right knee , initial encounter Additional Impression: Knee effusion, right Disposition: 01 HOME, SELF-CARE Condition: Improved Departure-Patient Inst. Decision time for Depature: 14:00 Referrals: DAVID CUMMINGS MD (PCP/Family) Primary Care Physician Patient Instructions: Knee Pain (DC), Knee Sprain (DC) Add. Discharge Instructions: Ice and elevate right knee 20 minutes every 2 hours while awake. Use crutches for ambulation, bearing as tolerated on right leg. You may alternate between Tylenol 650 mg and ibuprofen 600 mg every 4 hours for pain and swelling. Follow-up with your primary care provider if symptoms are not improving or worsen over the next 2-3 days. Use Dain wrap to right knee for swelling. Return to emergency department for new, acute health care problems. All discharge instructions reviewed with patient and/or family. Voiced understanding. HALEY BRANDT Aug 29, 2018 14:07
[2018-08-29 14:20] VITALS: BP 173/107
== END 2018-08-29 14:20 | disposition home or self-care (01) ==
LOC: EDUNIT# 13:03 → ER 13:05
DX: S83.411A Sprain of medial collateral ligament of right knee, initial encounter (principal); I25.10 Atherosclerotic heart disease of native coronary artery without angina pectoris; I25.2 Old myocardial infarction; E78.00 Pure hypercholesterolemia, unspecified; I10 Essential (primary) hypertension; K21.9 Gastro-esophageal reflux disease without esophagitis; F17.210 Nicotine dependence, cigarettes, uncomplicated; Z79.82 Long term (current) use of aspirin; Z85.828 Personal history of other malignant neoplasm of skin; Z95.810 Presence of automatic (implantable) cardiac defibrillator; Z95.5 Presence of coronary angioplasty implant and graft; W13.8XXA Fall from, out of or through other building or structure, initial encounter; X50.1XXA Overexertion from prolonged static or awkward postures, initial encounter
CPT/HCPCS: 73562

== ENCOUNTER → 2018-10-20 | Outpatient (CLI) | payer MEDICARE, OTHER ==
[~2018-10-20] VITALS: Ht 172.7 cm; Wt 84.8 kg
[~2018-10-20] MED LIST changes: +CATHETER FLUSH 10 ML SYR IV PRN; +REGADENOSON 0.4 MG/5 ML SYR (LEXISCAN) IV ONE
[2018-10-20 12:52] VITALS: BP 155/104
[2018-10-20 12:56] VITALS: BP 146/97
--- NOTE | 2018-10-21 08:58 | STRESS TEST ---
DATE OF SERVICE: 10/20/2018 LEXISCAN MYOVIEW STRESS TEST REPORT Baseline heart rate is 68. Baseline blood pressure is 142/81. Baseline EKG is sinus rhythm with no acute ischemic changes. In summary, the patient was injected with 10.99 mCi of technetium-99 Myoview and the resting images were obtained. Then, the patient received 0.4 mg of Lexiscan followed by 31.4 mCi of technetium-99 Myoview. Throughout the test, there were no EKG changes. The resting and stress images were reviewed and compared in the short axis, horizontal long axis and vertical long axis views. Review of the images showed decreased uptake involving the whole inferior wall, inferolateral wall and inferior apex with subtle reversibility. SSS is 24, SDS 3 and TID value 1.12. On the gated images, the left ventricle is dilated with hypokinesia at the lateral wall, inferolateral wall and inferior wall. Calculated ejection fraction is 45%. CONCLUSION: 1. The patient tolerated the Lexiscan well. 2. Fixed defect involving the whole inferior wall, inferolateral wall and true lateral wall and inferior apex with mild periinfarct ischemia. 3. Dilated left ventricle with diffuse left ventricular hypokinesia mainly at the inferior wall and inferolateral wall and anterolateral wall with calculated ejection fraction of 45%. Job ID: [id number] DocumentID: [id number] Dictated Date: 10/21/2018 08:41:31 Accounting Systems Analyst Date: 10/21/2018 08:57:03 Dictated By: TAMAR GARCIA MD
== END ==
LOC: CARD 11:25
PROVIDERS: ATTEND Internal Medicine Cardiovascular Disease
DX: I25.10 Atherosclerotic heart disease of native coronary artery without angina pectoris (principal); I11.0 Hypertensive heart disease with heart failure; I50.9 Heart failure, unspecified; E78.5 Hyperlipidemia, unspecified
CPT/HCPCS: 78452; 93017

== ENCOUNTER → 2020-09-24 | Outpatient (CLI) | payer MEDICARE, OTHER ==
[~2020-09-24] MED LIST changes: +AMLO-251 PO; -AMLO10TA6 PO; -CATHETER FLUSH 10 ML SYR IV PRN; +CEFU500T63 PO; +LISI40TA PO; -REGADENOSON 0.4 MG/5 ML SYR (LEXISCAN) IV ONE
== END ==
LOC: CARD 15:00
PROVIDERS: ATTEND Physician Assistant
DX: I50.9 Heart failure, unspecified (principal); I51.89 Other ill-defined heart diseases
CPT/HCPCS: 93306

== ENCOUNTER 2020-09-26 14:00 | Day surgery (SDC) | payer MEDICARE, OTHER ==
[2020-09-26] VITALS (10 sets, daily range): BP systolic 94–144; BP diastolic 52–82
[~2020-09-26] VITALS: Ht 172.7 cm; Wt 80.9 kg
[2020-09-26 12:33] LABS: HEMOGLOBIN 18.1 g/dL (13.3-17.7); MEAN PLATELET VOLUME 9.9 fL (9.0-12.2); WHITE BLOOD COUNT 9.9 10^3/uL (4.3-11.0)
--- NOTE | 2020-09-26 12:39 | Diagnostic Imaging Report ---
INDICATION: Congestive heart failure, ICD placement. COMPARISON: September 09, 2014. TECHNIQUE: Single radiograph of the chest dated September 26, 2020. FINDINGS: Single-lead pacer device is again identified with the battery pack overlying the left chest. The cardiac silhouette is within normal limits in size. No significant pulmonary vascular congestion. The lungs are clear. No pleural effusion. No pneumothorax. No acute osseous abnormality. IMPRESSION: Stable examination without acute cardiopulmonary abnormality. Dictated by: Dictated on workstation # [id number]
[2020-09-26 12:47] LABS: PROTHROMBIN TIME PATIENT 13.7 SEC (12.2-14.7)
[2020-09-26 12:57] LABS: ALBUMIN 4.1 GM/DL (3.2-4.5); BILIRUBIN,TOTAL 0.7 MG/DL (0.1-1.0); CALCIUM 9.4 MG/DL (8.5-10.1); CREATININE SERUM 1.3 MG/DL (0.60-1.30); TOTAL PROTEIN 7.4 GM/DL (6.4-8.2)
--- NOTE | 2020-09-26 13:03 | NUR ---
I SPOKE WITH THE PATIENT AND CALLED [facility] TO COMPLETE THIS MED REC. FILL DATES FROM [facility]: 04/18/2020 LISINOPRIL 40MG #90/90DS 09/06/2020 CARVEDILOL 25MG #45/90DS PATIENT SAID HE ALSO TAKES ATORVASTATIN 40MG, HYDROCHLORTHIAZIDE 25MG AND SERTRALINE 50MG. ATORVASTATIN WAS LAST FILLED 12/12/2019 #90. HYDROCHLORTHIAZIDE WAS LAST FILLED 02/11/2020 #90. SERTRALINE WAS LAST FILLED 05/21/2020 #30. SINCE THESE MEDICATIONS HAVEN'T BEEN FILLED IN SO LONG I LEFT THEM OFF OF THE MED REC. OTC: VITMAIN B ASPIRIN
--- NOTE | 2020-09-26 13:55 | Cardiac Procedure Note-CS/ASA ---
Pre-Procedure Note Pre-Op Procedure Note H&P Reviewed The H&P was reviewed, patient examined and no changes noted. Date H&P Reviewed: Sep 26, 2020 Time H&P Reviewed: 13:55 Conscious Sedation Pre-Proced Time 13:55 ASA Score 3 For ASA 3 and 4: Consider anesthesia and medical clearance. Also, for patients with a history of failed moderate sedation consider anesthesia. Airway Lungs Heart ASA score ASA 1: a normal healthy patient ASA 2: a patient with a mild systemic disease (mid diabetes, controlled hypertension, obesity x ASA 3: a patient with a severe systemic disease that limits activity (angina, COPD, prior Myocardial infarction) ASA 4: a patient with an incapacitating disease that is a constant threat to life (CHF, renal failure) ASA 5: a moribund patient not expected to survive 24 hrs. (ruptured aneurysm) ASA 6: a declared brain- patient whose organs are being harvested. For emergent operations, add the letter E after the classification Mallampati Classification Grade 3 Sedation Plan Analgesia, Amnesia, Plan communicated to team members, Discussed options with patient/fam, Discussed risks with patient/fam The patient is an appropriate candidate to undergo the planned procedure, sedation, and anesthesia. The patient immediately re-assessed prior to indication. TAMAR GARCIA MD Sep 26, 2020 13:55
--- NOTE | 2020-09-26 13:58 | Discharge Inst-Post CATH ---
Discharge Inst-CATH/EP Problems Reviewed?: Yes Post Cardiac Cath/EP D/C Inst Follow Up/Plan Appointment with Dr. Castillo's office next week for wound check <b>CARDIAC CATH/EP PROCEDURE DISCHARGE INSTRUCTIONS</b> ACTIVITY * Go Home directly and rest. * Limit activity of the leg (or wrist if it was used) for 7 days including aerobics, swimming, jogging, bicycling, etc. * Restrict stair-climbing for 7 days if possible, if not, climb up with your non-cath leg, then bring together on the same step. * Avoid lifting, pushing, pulling or excessive movement of the affected extremity for 7 days. * Customary sexual activity may be resumed after 2 days-use caution not to use a position that strains or causes pain to the affected extremity. * No driving for 24 hours. * NO SMOKING. * Avoid straining for bowel movements for 7 days. * Gentle walking on level ground is allowed. * Returning to work will depend on the type of procedure and the results. Your doctor will discuss this with you. CALL YOUR DOCTOR FOR ANY OF THE FOLLOWING: *If bleeding from the puncture site occurs- Apply gentle pressure to site with clean cloth and call your doctor or EMS. * If a knot or lump forms under the skin, increases in size, or causes pain. * If bruising appears to be worsening or moving further down your leg instead of disappearing. * Temperature above 101 F. CARE OF YOUR GROIN INCISION; * Bruising or purple discoloration of the skin near the puncture site is common. * You may shower only, no bathtub bathing for 5 days. Be careful to avoid slipping as your leg may feel stiff. * If a closure device was used on your femoral artery, please see the attached guide regarding care of the device and your leg. * Leave dressing on FOR 24 hours. CARE OF YOUR WRIST INCISION; * Bruising or purple discoloration of the skin near the puncture site is common. * You may shower. * DO NOT submerge wrist. * Leave dressing on FOR 24 hours. TAMAR CASTILLO MD Sep 26, 2020 13:58
[~2020-09-26 14:00] MED LIST changes: +BACITRACIN INJECTION 50,000 UNIT, SODIUM CHLORIDE 0.9% IRRIGATIO 500 ML IR ONE; +HEParin (CATH LAB) 1,000 ML IV ONE; +LIDOCAINE 1% INJ 20 ML 20 ML VIAL ONE; +MIDAZOLAM 5 MG/5 ML (VERSED) VIAL ONE; +NS (IVPB) 50 ML ONE; +NS IV 1000 ML 1,000 ML IV ONE; +NS IV 1000 ML 1,000 ML IV SCH; +NS IV 1000 ML 1,000 ML ONE; +PATIENT MAY USE OWN MEDS, ALL PO SCH; +ceFAZolin INJECTION 1,000 MG ONE; +ceFAZolin INJECTION 1,000 MG in WATER (STERILE) FOR INJECTION 10 ML IV SCH; +fentaNYL INJECTION 100 MCG/2 ML AMP ONE
--- NOTE | 2020-09-26 14:02 | ICD Change ---
ICD Generator Change Physician (s)/Freight Car Builder (s) Physician TAMAR GARCIA MD Pre-Procedure Diagnosis Pre-Procedure Diagnosis: congestive heart failure Post-Procedure Note Procedure Start Date: Sep 26, 2020 Name of Procedure: Single chamber ICD generator change Findings/Procedure Note 64 years old gentleman with history of congestive heart failure, has single chamber ICD for primary prevention. Reached [place]. Scheduled for generator change. After next day the procedure to the patient on Prozac and cons were extended all questions were answered patient was given local anesthesia, conscious sedation achieved. Skin incision was made and the device single chamber was retrieved new Medtronic device with ICD-VR VISISA AF MRI serial number [id number] was attached to the ventricular lead, placed back in the pocket and the pocket was sutured on 2 layers. No complication noted Postimplantation testing R-wave 21 mV, pacing impedance 399, HCV B impedance 55, edge BX impedance 73, threshold pacing 1.25 at 0.6 Conclusion Successful single-chamber ICD generator replacement with no complication Anesthesia Type: Conscious Sedation Estimated blood loss (mL): 20 ML Contrast Amount: 0 ML Post-Procedure Diagnosis Post-operative diagnosis: Congestive heart failure, chronic compensated left ventricular systolic dysfunction, nonischemic cardiomyopathy Coronary artery disease Hypertension Hyperlipidemia TAMAR GARCIA MD Sep 26, 2020 14:02
== END 2020-09-26 16:12 | disposition home or self-care (01) ==
LOC: CATH 14:00
PROVIDERS: ATTEND Internal Medicine Cardiovascular Disease
DX: I11.0 Hypertensive heart disease with heart failure (principal); I50.22 Chronic systolic (congestive) heart failure; I25.10 Atherosclerotic heart disease of native coronary artery without angina pectoris; E78.2 Mixed hyperlipidemia; I65.23 Occlusion and stenosis of bilateral carotid arteries; Z79.82 Long term (current) use of aspirin; Z79.899 Other long term (current) drug therapy; Z95.810 Presence of automatic (implantable) cardiac defibrillator; Z72.0 Tobacco use
CPT/HCPCS: 33262; 71045; 80053; 80061; 85027; 85610; 85730; 87081; C1722; 36415

== ENCOUNTER → 2020-12-07 | Outpatient (CLI) | payer MEDICARE, OTHER ==
[~2020-12-07] MED LIST changes: -BACITRACIN INJECTION 50,000 UNIT, SODIUM CHLORIDE 0.9% IRRIGATIO 500 ML IR ONE; +BAMLANIVIMAB (NON FORM) 700 MG in NS (IVPB) 250 ML IV ONE; +EPINEPHrine INJECTION 1 MG/ML AMP IM PRN; -HEParin (CATH LAB) 1,000 ML IV ONE; -LIDOCAINE 1% INJ 20 ML 20 ML VIAL ONE; -MIDAZOLAM 5 MG/5 ML (VERSED) VIAL ONE; -NS (IVPB) 50 ML ONE; -NS IV 1000 ML 1,000 ML IV ONE; -NS IV 1000 ML 1,000 ML IV SCH; -NS IV 1000 ML 1,000 ML ONE; -PATIENT MAY USE OWN MEDS, ALL PO SCH; -ceFAZolin INJECTION 1,000 MG ONE; -ceFAZolin INJECTION 1,000 MG in WATER (STERILE) FOR INJECTION 10 ML IV SCH; +diphenhydrAMINE 50 MG/ML INJ (BENADRYL) IV PRN; -fentaNYL INJECTION 100 MCG/2 ML AMP ONE
[2020-12-07 09:01] VITALS: BP 119/63
[2020-12-07 09:44] VITALS: BP 114/83
== END ==
LOC: INFUSION 08:05
PROVIDERS: ATTEND Nurse Practitioner
DX: U07.1 COVID-19 (principal)

== ENCOUNTER → 2022-01-09 | Outpatient (CLI) | payer MEDICARE, OTHER ==
[~2022-01-09] MED LIST changes: -BAMLANIVIMAB (NON FORM) 700 MG in NS (IVPB) 250 ML IV ONE; -EPINEPHrine INJECTION 1 MG/ML AMP IM PRN; -LISI-552 PO; +LISI20TA26 PO; -LISI40TA PO; +LISI40TA9 PO; +SERT-413 PO; -SERT50TA9 PO; -diphenhydrAMINE 50 MG/ML INJ (BENADRYL) IV PRN
== END ==
LOC: CARD 08:30
PROVIDERS: ATTEND Internal Medicine Cardiovascular Disease
DX: I11.9 Hypertensive heart disease without heart failure (principal); I08.0 Rheumatic disorders of both mitral and aortic valves
CPT/HCPCS: 93306

== ENCOUNTER → 2022-01-15 | Outpatient (CLI) | payer MEDICARE, OTHER ==
[~2022-01-15] VITALS: Ht 172 cm; Wt 86.0 kg
[~2022-01-15] MED LIST changes: +CATHETER FLUSH 10 ML SYR IVP PRN; +REGADENOSON 0.4 MG/5 ML SYR (LEXISCAN) IV ONE
[2022-01-15 09:10] VITALS: BP 158/84
--- NOTE | 2022-01-15 12:11 | Cardiology Stress Test Report ---
Stress Test Report Date of Procedure/Referring: Date of Procedure: Jan 15, 2022 PCP Tamar Castillo MD Admitting Physician Center/[facility] Indications: CP Baseline Heart Rate: 60 Baseline Blood Pressure: Blood Pressure Systolic: 158 Blood Pressure Diastolic: 84 Baseline Vitals Vital Signs Date Time Temp Pulse Resp B/P (MAP) Pulse Ox O2 Delivery O2 Flow Rate FiO2 01/15/22 09:10 60 158/84 (108) Baseline EKG: Baseline EKG: NSR Summary After explaining the procedure to the patient, he signed a consent and then brought to the stress nuclear laboratory. Patient received 0.4 mg Lexiscan for stress test, ECG, heart rate and blood pressure were monitored continuously. Resting and stress dose of radio tracer were injected, imaging was acquired and reviewed in short axis, horizontal long axis and vertical long axis views. TID: 1.05 SSS: 24 SDS: 1 EF: 28 1. Patient tolerated Lexiscan well 2. Total infarction of the lateral wall, anterolateral and inferolateral wall with a small area of grady-infarct ischemia 3. Dilated left ventricle with hypokinesia of the lateral wall and inferolateral wall, ejection fraction 28% TAMAR CASTILLO MD Jan 15, 2022 12:11
== END ==
LOC: CARD 08:30
PROVIDERS: ATTEND Internal Medicine Cardiovascular Disease
DX: R07.9 Chest pain, unspecified (principal)
CPT/HCPCS: 78452; 93017; A9502

== ENCOUNTER 2022-02-19 10:00 | Day surgery (SDC) | payer MEDICARE, OTHER ==
[~2022-02-19] VITALS: Ht 172.7 cm; Wt 83.0 kg
[2022-02-19] VITALS (7 sets, daily range): BP systolic 123–181; BP diastolic 79–109
[2022-02-19 08:15] LABS: BILIRUBIN,URINE NEGATIVE (NEGATIVE); CLARITY,URINE CLEAR; COLOR,URINE YELLOW; GLUCOSE, URINE (UA) NEGATIVE (NEGATIVE); HEMATOCRIT 51 % (40-54); HEMOGLOBIN 17.5 g/dL (13.3-17.7); KETONES,URINE NEGATIVE (NEGATIVE); LEUKOCYTE ESTERASE ,URINE NEGATIVE (NEGATIVE); MEAN CORPUSCULAR HEMOGLOBIN 30 pg (25-34); MEAN CORPUSCULAR HGB CONC 35 g/dL (32-36); MEAN CORPUSCULAR VOLUME 88 fL (80-99); MEAN PLATELET VOLUME 9.9 fL (9.0-12.2); NITRITE,URINE NEGATIVE (NEGATIVE); PLATELET COUNT 260 10^3/uL (130-400); PROTEIN,URINE NEGATIVE (NEGATIVE)
[2022-02-19 08:24] LABS: BACTERIA,URINE NEGATIVE /HPF; SQUAMOUS EPITHELIAL CELL,UR 0-2 /HPF
[2022-02-19 08:35] LABS: PROTHROMBIN TIME PATIENT 13.2 SEC (12.2-14.7)
--- NOTE | 2022-02-19 08:36 | Diagnostic Imaging Report ---
INDICATION: Pre-heart catheterization. TIME OF EXAM: 8:14 AM Correlation is made prior chest 09/26/2020. FINDINGS: Heart size stable. Cardiac defibrillator is in place. Lungs are clear. No infiltrates are seen. No effusion or pneumothorax is identified. IMPRESSION: No acute cardiopulmonary process is detected. Dictated by: Dictated on workstation # [id number]
[2022-02-19 08:38] LABS: ALBUMIN 4.1 GM/DL (3.2-4.5); BILIRUBIN,TOTAL 0.6 MG/DL (0.1-1.0); CALCIUM 9.5 MG/DL (8.5-10.1); CREATININE SERUM 1.22 MG/DL (0.60-1.30); TOTAL PROTEIN 7.4 GM/DL (6.4-8.2)
--- NOTE | 2022-02-19 08:55 | Conscious Sedation/ASA ---
Conscious Sedation Pre-Proced Time 08:54 ASA Score 3 For ASA 3 and 4: Consider anesthesia and medical clearance. Also, for patients with a history of failed moderate sedation consider anesthesia. Airway Lungs Heart ASA score ASA 1: a normal healthy patient ASA 2: a patient with a mild systemic disease (mid diabetes, controlled hypertension, obesity ASA 3: a patient with a severe systemic disease that limits activity (angina, COPD, prior Myocardial infarction) ASA 4: a patient with an incapacitating disease that is a constant threat to life (CHF, renal failure) ASA 5: a moribund patient not expected to survive 24 hrs. (ruptured aneurysm) ASA 6: a declared brain- patient whose organs are being harvested. For emergent operations, add the letter E after the classification Mallampati Classification Grade 3 Sedation Plan Analgesia, Amnesia, Plan communicated to team members, Discussed options with patient/fam, Discussed risks with patient/fam The patient is an appropriate candidate to undergo the planned procedure, sedation, and anesthesia. The patient immediately re-assessed prior to indication. TAMAR GARCIA MD Feb 19, 2022 08:55
--- NOTE | 2022-02-19 09:36 | Cardiac Cath Report ---
Cardiac Cath Report Physician (s)/Piercing Machine Operator (s) Physician TAMAR GARCIA MD Pre-Procedure Diagnosis Pre-Procedure Diagnosis: congestive heart failure Post-Procedure Note Procedure Start Date: Feb 19, 2022 Name of Procedure: Left heart cath LV gram Aortic arch angiogram Findings/Procedure Note PROCEDURE NOTE: 66 years old gentleman with history of coronary artery disease, congestive heart failure, chronic compensated left ventricular systolic dysfunction, has a single-chamber ICD implanted in 2005. Had an abnormal stress test as scheduled for cardiac catheterization possible PTCA. After explaining the procedure to the patient, all pros and cons were explained, all questions were answered. The patient signed the consent and then he was placed on the cardiac catheterization laboratory. Groin was prepped SL fashion local anesthesia was used. Sheath placed in the right radial artery, [place] catheter was advanced and prolapsed to the left ventricular cavity, left ventriculogram was done, pressure was measured, pullback LV to aorta was done, engaged the right and left coronary system, angiogram was done, pulled back to the aortic arch and aortic arch angiogram was done. At the end of the procedure the sheath was removed. Vascular band was used FINDINGS: Hemodynamics LV 100/10, end-diastolic pressure of 10 Aorta 95/65 mean of 80 ANATOMY: Left Main is free of obstructive disease Left Anterior Descending has severe stenosis at the midportion and severe stenosis at the diagonal artery Left Circumflex has severe stenosis at the obtuse marginal branch Right Coronary Artery has severe stenosis proximally with slow flow LV Gram was done showing prominent left ventricle with diffuse left ventricular hypokinesia with ejection fraction 30% Aorta evaluation done with aortic arch angiogram showing normal aortic arch, no dissection or aneurysm, normal brachiocephalic artery left carotid and left subclavian arteries CONCLUSION: 1. Severe 4 vessel disease involving mid LAD, proximal diagonal artery, proximal obtuse marginal branch and proximal right coronary artery 2. Dilated left ventricle with diffuse left ventricular hypokinesia with ejection fraction 30% 3. Prominent aortic arch and great vessels of the neck Hospital course: Patient was admitted to stepdown unit, I contacted tertiary care center for ar rangement for transfer for bypass surgery, he might require ECMO. We will continue maximizing medical therapy while monitoring the patient closely Final diagnosis Coronary artery disease Congestive heart failure, chronic compensated left ventricular systolic dysfunction, ischemic cardiomyopathy Hypertension Hyperlipidemia Tobaccoism DISCUSSION AND RECOMMENDATION: Patient is stable, I will arrange for evaluation for CABG. He might require ECMO backup Anesthesia Type: Conscious Sedation Estimated blood loss (mL): 10 ml Contrast Amount: 45 ml Total Radiation Dose: 326 mGy Post-Procedure Diagnosis Post-operative diagnosis: Coronary artery disease Congestive heart failure, chronic compensated left ventricular systolic dysfunction, ischemic cardiomyopathy Hypertension Hyperlipidemia TAMAR GARCIA MD Feb 19, 2022 09:36
[~2022-02-19 10:00] MED LIST changes: -CATHETER FLUSH 10 ML SYR IVP PRN; +HEParin (CATH LAB) 2,000 ML IV ONE; +HEParin 1000 UNIT/ML (10ML VIAL) FOR BOLUS ONE; +LIDOCAINE 1% INJ 50 ML (XYLOCAINE) VIAL ONE; +MIDAZOLAM 5 MG/5 ML (VERSED) VIAL ONE; +NITRO DRIP 25000 MCG/D5W 250 ML IV ONE; +NS IV 1000 ML 1,000 ML IV SCH; +NS IV 1000 ML 1,000 ML ONE; +PATIENT MAY USE OWN MEDS, ALL PO SCH; -REGADENOSON 0.4 MG/5 ML SYR (LEXISCAN) IV ONE; +VERAPAMIL 5 MG/2 ML (CALAN) VIAL IV ONE; +fentaNYL INJ 100 MCG/2 ML AMP ONE
== END 2022-02-19 18:50 | disposition short-term general hospital (02) ==
LOC: CATH 10:00 → CSD 10:25 → CATH 18:50
PROVIDERS: ATTEND Internal Medicine Cardiovascular Disease
DX: I25.10 Atherosclerotic heart disease of native coronary artery without angina pectoris (principal); I11.0 Hypertensive heart disease with heart failure; I25.5 Ischemic cardiomyopathy; I50.42 Chronic combined systolic (congestive) and diastolic (congestive) heart failure; I65.23 Occlusion and stenosis of bilateral carotid arteries; E78.2 Mixed hyperlipidemia; F17.210 Nicotine dependence, cigarettes, uncomplicated; Z95.810 Presence of automatic (implantable) cardiac defibrillator
CPT/HCPCS: 36221; 71045; 80053; 80061; 81000; 85027; 85610; 85730; 87081; 93005; 93458; C1894; 36415

== ENCOUNTER 2022-03-24 08:49 | Outpatient (RCR) | payer MEDICARE, OTHER ==
[~2022-03-24 08:49] MED LIST changes: -HEParin (CATH LAB) 2,000 ML IV ONE; -HEParin 1000 UNIT/ML (10ML VIAL) FOR BOLUS ONE; -LIDOCAINE 1% INJ 50 ML (XYLOCAINE) VIAL ONE; -MIDAZOLAM 5 MG/5 ML (VERSED) VIAL ONE; -NITRO DRIP 25000 MCG/D5W 250 ML IV ONE; -NS IV 1000 ML 1,000 ML IV SCH; -NS IV 1000 ML 1,000 ML ONE; -PATIENT MAY USE OWN MEDS, ALL PO SCH; -VERAPAMIL 5 MG/2 ML (CALAN) VIAL IV ONE; -fentaNYL INJ 100 MCG/2 ML AMP ONE
[2022-03-26] MEDS ORDERED: CARV6.25 PO (11:19)
[2022-03-26] MEDS ORDERED: LOSA100T57 PO (11:19)
== END 2022-04-08 | disposition home or self-care (01) ==
LOC: CR 08:49
PROVIDERS: ATTEND Internal Medicine Cardiovascular Disease
DX: Z29.8 Encounter for other specified prophylactic measures (principal); Z95.1 Presence of aortocoronary bypass graft
CPT/HCPCS: 93798

== ENCOUNTER 2022-03-26 09:26 | Emergency (ER) | payer MEDICARE, OTHER ==
[~2022-03-26] VITALS: Ht 172 cm; Wt 78.0 kg
--- NOTE | 2022-03-26 09:54 | ED Cardiac General ---
History of Present Illness General Chief Complaint: Cardiac/General Problems Stated Complaint: HIGH BP Source: patient Exam Limitations: no limitations History of Present Illness Date Seen by Provider: March 26, 2022 Time Seen by Provider: 09:54 Initial Comments Patient is a 66-year-old male referred from cardiac rehab this morning for elevated blood pressure. He states that when he woke up this morning and took his blood pressure as he does routinely he was in the 130s systolic. He states by the time he got to rehab his blood pressure was in the 1 80-1 90 systolic range over 100-110. Patient is status post coronary artery bypass grafting x3 in February. He started cardiac rehab on Thursday. He saw Dr. Castillo for his follow- up about 2 weeks ago, the practitioner was concerned about elevated diastolic pressures and added losartan 25 mg daily to his regimen of Coreg 3.125 twice daily. Patient states he is really been doing very well. He states he did get a little overheated on Thursday with graduation activities. He laid around most of the day after noting that his blood pressure was elevated. He had no time had chest pain, pressure or tightness. He is not short of breath or nauseous. He has felt a little dizzy/lightheaded this morning but its not been persistent. Bowel and bladder function are normal. No recent illnesses such as fevers, chills, cough or congestion. States he is compliant with his medications. Currently really asymptomatic although at 1 point this morning he had a little discomfort in the right upper inner arm that was brief. All other review of systems reviewed and negative except as stated Severity: mild Prior CP/Workup: other (CABG) NTG SL ASSOCIATE PROFESSOR OF LIBRARY MEDIA: Yes ASA po ASSOCIATE PROFESSOR OF LIBRARY MEDIA: No Associated Systoms: Other (slight lightheadedness) Allergies and Home Medications Allergies Coded Allergies: NKANo Known Allergies (Verified Allergy, Unknown, 06/04/06) Patient Home Medication List Home Medication List Reviewed: Yes Aspirin (Aspirin) 325 Mg Tablet, 325 MG PO DAILY, (Reported) Entered as Reported by: TASNEEM REAVES on 10/23/17 0753 Atorvastatin Calcium (Atorvastatin Calcium) 40 Mg Tablet, 40 MG PO HS, (Reported) Entered as Reported by: CISCO WILCOX on 02/19/22 0829 Carvedilol (Carvedilol) 25 Mg Tablet, 25 MG PO BID, (Reported) Entered as Reported by: TASNEEM REAVES on 10/23/17 075 Hydrochlorothiazide (Hydrochlorothiazide) 25 Mg Tablet, 25 MG PO DAILY, (Reported) Entered as Reported by: CISCO WILCOX on 02/19/2229 Lisinopril (Lisinopril) 40 Mg Tablet, 40 MG PO DAILY, (Reported) Entered as Reported by: MADISON LAWTON on 09/26/20 1300 Sertraline HCl (Sertraline HCl) 50 Mg Tablet, 50 MG PO DAILY, (Reported) Entered as Reported by: CISCO WILCOX on 02/19/22828 Vitamin B Complex (Vitamin B Complex) 1 Each Tablet, 1 EACH PO DAILY, (Reported) Entered as Reported by: TASNEEM REAVES on 10/23/17 075 Review of Systems Review of Systems Constitutional: see HPI EENTM: No Symptoms Reported Respiratory: No Symptoms Reported Cardiovascular: No Symptoms Reported, Other (occasional chest discomfort related (he thinks) to sternotomy) Gastrointestinal: No Symptoms Reported Genitourinary: No Symptoms Reported Musculoskeletal: other (slight pain - brief in upper right inner arm) Skin: no symptoms reported All Other Systems Reviewed Negative Unless Noted: Yes Past Nrzitun-Zxpnzl-Btxjsa Hx Immunizations Up To Date Tetanus Booster (TDap): Unknown Seasonal Allergies Seasonal Allergies: No Past Medical History Surgeries: Yes (STENT 2000, DEBRILLATOR 2011) Coronary Stent, Defibrillator, Orthopedic Respiratory: No Cardiac: Yes (STENT, DEFIBRILLATOR) Cardiomyopathy, Coronary Artery Disease, Heart Attack, High Cholesterol, Hypertension, Syncope Neurological: No Reproductive Disorders: No Genitourinary: No Gastrointestinal: Yes Gastroesophageal Reflux Musculoskeletal: No Endocrine: No Loss of Vision: Bilateral Hearing Impairment: Denies Cancer: Yes (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 0.0oz. [id number]; 27.59 BMI Method:Estimated General Appearance: No Apparent Distress, WD/WN HEENT: PERRL/EOMI Neck: Normal Inspection Respiratory: Lungs Clear, Normal Breath Sounds, No Accessory Muscle Use, No Respiratory Distress, Other (slight chest tenderness to palopation) Cardiovascular: Regular Rate, Rhythm, Normal Peripheral Pulses (2+ radial bilaterally) Gastrointestinal: Non Tender, Soft Extremity: Normal Inspection, Normal Range of Motion, Non Tender, No Calf Tenderness, No Pedal Edema Neurologic/Psychiatric: Alert, Oriented x3, No Motor/Sensory Deficits, Normal Mood/Affect Skin: Normal Color, Warm/Dry Progress/Results/Core Measures Results/Orders Lab Results Laboratory Tests Test 03/26/22 09:46 Range/Units White Blood Count 9.5 4.3-11.0 10^3/uL Red Blood Count 4.83 4.30-5.52 10^6/uL Hemoglobin 14.2 13.3-17.7 g/dL Hematocrit 43 40-54 % Mean Corpuscular Volume 89 80-99 fL Mean Corpuscular Hemoglobin 29 25-34 pg Mean Corpuscular Hemoglobin Concent 33 32-36 g/dL Red Cell Distribution Width 13.0 10.0-14.5 % Platelet Count 279 130-400 10^3/uL Mean Platelet Volume 9.8 9.0-12.2 fL Immature Granulocyte % (Auto) 0 % Neutrophils (%) (Auto) 62 42-75 % Lymphocytes (%) (Auto) 23 12-44 % Monocytes (%) (Auto) 9 0-12 % Eosinophils (%) (Auto) 6 0-10 % Basophils (%) (Auto) 1 0-10 % Neutrophils # (Auto) 5.8 1.8-7.8 10^3/uL Lymphocytes # (Auto) 2.2 1.0-4.0 10^3/uL Monocytes # (Auto) 0.8 0.0-1.0 10^3/uL Eosinophils # (Auto) 0.6 H 0.0-0.3 10^3/uL Basophils # (Auto) 0.1 0.0-0.1 10^3/uL Immature Granulocyte # (Auto) 0.0 0.0-0.1 10^3/uL Sodium Level 140 135-145 MMOL/L Potassium Level 4.3 3.6-5.0 MMOL/L Chloride Level 108 H 98-107 MMOL/L Carbon Dioxide Level 24 21-32 MMOL/L Anion Gap 8 5-14 MMOL/L Blood Urea Nitrogen 11 7-18 MG/DL Creatinine 1.01 0.60-1.30 MG/DL Estimat Glomerular Filtration Rate 81 BUN/Creatinine Ratio 11 Glucose Level 96 70-105 MG/DL Calcium Level 9.0 8.5-10.1 MG/DL My Orders Orders - SIMI CURRY MD Ed Iv/Invasive Line Start (03/26/22 10:01) Basic Metabolic Panel (03/26/22 10:01) Cbc With Automated Diff (03/26/22 10:01) Ekg Tracing (03/26/22 10:01) Vital Signs/I&O 03/26/22 03/26/22 09:36 10:30 Temp 36.2 Pulse 79 62 Resp 18 B/P (MAP) 181/116 (137) 167/101 Pulse Ox 94 94 O2 Delivery Room Air Room Air Progress Progress Note : Time: 11:13 Progress Note Patient discussed with Dr. Castillo at this time. He recommends increasing his medication to Coreg 6.25 twice daily and losartan 100 daily. He will see him next week on either Thursday or Thursday or . I will instruct the patient to call this week to arrange that appointment. In the meantime patient is given good return precautions. He verbalized understanding. All questions are sought and answered. Patient is anxious for discharge - he is hungry! Initial ECG Impression Date: March 26, 2022 Initial ECG Impression Time: 10:24 Initial ECG Rhythm: Normal Sinus Initial ECG Intervals: Normal Initial ECG Impression: Nonspecific Changes Departure Impression Primary Impression: High blood pressure Qualified Codes: I10 - Essential (primary) hypertension Additional Impression: History of coronary artery disease Disposition: HOME, SELF-CARE Condition: Stable Departure-Patient Inst. Decision time for Depature: 11:17 Referrals: [facility] (PCP) Primary Care Physician MAGED WEAVER (Family) Primary Care Physician TAMAR CASTILLO MD Patient Instructions: High Blood Pressure (DC) Add. Discharge Instructions: Continue to drink plenty of fluids to stay well-hydrated. Monitor yourself for symptoms of chest pain, shortness of breath/exercise intolerance, decreased urination, leg swelling etc. If any of these develop please come back to the emergency room for reevaluation. We are increasing your dose of losartan to 100 mg once daily. You have been given your first dose of the 100 mg today. We are increasing the Coreg to 6.25 mg twice daily. You can start the increased dose this evening. Dr. Castillo would like to see you in his office next week on either Thursday, or . Please call the office this week to schedule an appointment. Scripts Carvedilol (Coreg) 6.25 Mg Tablet 6.25 MG PO BID for 30 Days, #60 TAB Prov: SIMI CURRY MD 03/26/22 Losartan Potassium (Losartan Potassium) 100 Mg Tablet 100 MG PO DAILY for 30 Days, #30 TAB Prov: SIMI CURRY MD 03/26/22 Copy Copies To 1: TAMAR CASTILLO MD Copies To 2: EYAD VILLALOBOS KATHRYN M MD March 26, 2022 09:54
[2022-03-26 10:08] LABS: BASOPHILS # (AUTO) 0.1 10^3/uL (0.0-0.1); BASOPHILS % (AUTO) 1 % (0-10); EOSINOPHILS # (AUTO) 0.6 10^3/uL (0.0-0.3); EOSINOPHILS % (AUTO) 6 % (0-10); HEMATOCRIT 43 % (40-54); HEMOGLOBIN 14.2 g/dL (13.3-17.7); LYMPHOCYTES # (AUTO) 2.2 10^3/uL (1.0-4.0); LYMPHOCYTES % (AUTO) 23 % (12-44); MEAN CORPUSCULAR HEMOGLOBIN 29 pg (25-34); MEAN CORPUSCULAR HGB CONC 33 g/dL (32-36); MEAN CORPUSCULAR VOLUME 89 fL (80-99); MEAN PLATELET VOLUME 9.8 fL (9.0-12.2); MONOCYTES # (AUTO) 0.8 10^3/uL (0.0-1.0); MONOCYTES % (AUTO) 9 % (0-12); NEUTROPHILS # (AUTO) 5.8 10^3/uL (1.8-7.8); NEUTROPHILS % (AUTO) 62 % (42-75); PLATELET COUNT 279 10^3/uL (130-400); WHITE BLOOD COUNT 9.5 10^3/uL (4.3-11.0)
[2022-03-26 10:09] LABS: POTASSIUM 4.3 MMOL/L (3.6-5.0)
[2022-03-26 10:15] LABS: CREATININE SERUM 1.01 MG/DL (0.60-1.30)
[2022-03-26] MEDS ORDERED: LOSA100T57 PO (11:19)
[2022-03-26] MEDS ORDERED: CARV6.25 PO (11:19)
[2022-03-26] MEDS ORDERED: LOSARTAN 100 MG (COZAAR) TABLET PO ONE (11:30)
[2022-03-26 11:32] VITALS: BP 175/107
== END 2022-03-26 11:32 | disposition home or self-care (01) ==
LOC: EDUNIT# 09:26 → ER 09:27
DX: I10 Essential (primary) hypertension (principal); I25.10 Atherosclerotic heart disease of native coronary artery without angina pectoris; Z95.1 Presence of aortocoronary bypass graft; Z79.899 Other long term (current) drug therapy
CPT/HCPCS: 36415; 80048; 85025; 93005

== ENCOUNTER 2022-04-09 06:36 | Outpatient (RCR) | payer MEDICARE, OTHER ==
[~2022-04-09 06:36] MED LIST changes: +CARV6.25 PO; +LOSA100T57 PO
== END 2022-05-08 | disposition home or self-care (01) ==
LOC: CR 06:36
PROVIDERS: ATTEND Internal Medicine Cardiovascular Disease
DX: Z29.8 Encounter for other specified prophylactic measures (principal); Z95.1 Presence of aortocoronary bypass graft

== ENCOUNTER 2022-12-10 05:52 | Outpatient (CLI) | payer MEDICARE, OTHER ==
[~2022-12-10] VITALS: Ht 172.7 cm; Wt 86.8 kg
[2022-12-10] MEDS ORDERED: LACTATED RINGERS 1,000 ML IV STA (09:04)
[2022-12-10] MEDS ORDERED: AMLO-250 PO (09:10)
[2022-12-10] MEDS ORDERED: RT-ALBUINH INH (09:10)
[2022-12-10] MEDS ORDERED: CARV12.53 PO (09:10)
[2022-12-10] MEDS ORDERED: SENN-234 PO (09:10)
[2022-12-10] MEDS ORDERED: ASPI-1238 PO (09:10)
[2022-12-10] MEDS ORDERED: ATOR80TA76 PO (09:10)
== END 2022-12-10 09:18 | disposition home or self-care (01) ==
LOC: PREOP 05:52
PROVIDERS: ATTEND Surgery
DX: Z01.818 Encounter for other preprocedural examination (principal)

== ENCOUNTER → 2022-12-15 | Outpatient (CLI) | payer MEDICARE, OTHER ==
[~2022-12-15] MED LIST changes: +AMLO-250 PO; +ASPI-1238 PO; +ATOR80TA76 PO; +CARV12.53 PO; +RT-ALBUINH INH; +RT-ALBUTEROL SULF 2.5 MG/3 ML PRE-MIX VIAL INH ONE; +SENN-234 PO
== END ==
LOC: RT 10:24
PROVIDERS: ATTEND Internal Medicine Critical Care Medicine
DX: J44.9 Chronic obstructive pulmonary disease, unspecified (principal)
CPT/HCPCS: 94060; 94621; 94726; 94729

== ENCOUNTER 2023-03-02 09:03 | Emergency (ER) | payer MEDICARE, OTHER ==
[~2023-03-02] VITALS: Ht 172.7 cm; Wt 86.2 kg
[~2023-03-02 09:03] MED LIST changes: -RT-ALBUTEROL SULF 2.5 MG/3 ML PRE-MIX VIAL INH ONE
[2023-03-02] MEDS ORDERED: OXYMETAZOLINE (AFRIN) 0.05% NA 30 ML BTL ONE (09:14)
[2023-03-02] MEDS ORDERED: OXYMETAZOLINE (AFRIN) 0.05% NA 30 ML BTL SCH (09:30)
--- NOTE | 2023-03-02 09:44 | ED EENT ---
History of Present Illness General Chief Complaint: Nasal Problems Stated Complaint: NOSE BLEED Nursing Triage Note: PT AMB TO RM 6 COMPLAINT OF NOSE BLEED THAT INITIALLY STARTED AT 0100, STOPPED. AND THEN RESTARTED AT 0845. Source: patient Exam Limitations: no limitations History of Present Illness Date Seen by Provider: Mar 02, 2023 Time Seen by Provider: 09:10 Initial Comments 67-year-old male presents emergency room today for nosebleed from his left nare. Started at 1 AM, he held pressure for about 20 minutes and it resolved. It started again about 730 and he has been unable to keep from bleeding. Have a history of nosebleeds. He is on aspirin 324 mg daily. No other blood thinning medications. No trauma. All other systems reviewed and negative except documented per HPI. Voice recognition software was used to help create this chart Allergies and Home Medications Allergies Coded Allergies: Corina Known Allergies (Verified Allergy, Unknown, 06/04/06) Patient Home Medication List Home Medication List Reviewed: Yes Albuterol Sulfate (Ventolin Hfa) 1 Puff Puff, 2 PUFF INH Q4H, (Reported) Entered as Reported by: JAMES STILES on 12/10/22 09 Amlodipine Besylate (Amlodipine Besylate) 5 Mg Tablet, 5 MG PO DAILY, (Reported) Entered as Reported by: JAMES STILES on 12/10/22 09 Aspirin (Aspirin) 325 Mg Tablet, 325 MG PO DAILY, (Reported) Entered as Reported by: TASNEEM REAVES on 10/23/17 0753 Aspirin (Aspirin EC) 81 Mg Tablet.dr, 81 MG PO DAILY, (Reported) Entered as Reported by: JAMES STILES on 12/10/22 09 Atorvastatin Calcium (Atorvastatin Calcium) 80 Mg Tablet, 80 MG PO DAILY, (Reported) Entered as Reported by: JAMES STILES on 12/10/22 09 Carvedilol (Carvedilol) 12.5 Mg Tablet, 12.5 MG PO BID, (Reported) Entered as Reported by: JAMES STILES on 12/10/22 09 Losartan Potassium (Losartan Potassium) 100 Mg Tablet, 100 MG PO DAILY Prescribed by: SIMI CURRY on 03/26/22 1119 Sennosides (Senna) 8.6 Mg Tablet, 8.6 MG PO BID, (Reported) Entered as Reported by: JAMES STILES on 12/10/22 0910 Sertraline HCl (Sertraline HCl) 50 Mg Tablet, 50 MG PO DAILY, (Reported) Entered as Reported by: CISCO WILCOX on 02/19/22 0829 Vitamin B Complex (Vitamin B Complex) 1 Each Tablet, 1 EACH PO DAILY, (Reported) Entered as Reported by: TASNEEM REAVES on 10/23/17 0753 Review of Systems Review of Systems Constitutional: see HPI Past Rqduahl-Kzkmik-Qmbqkp Hx Patient Social History Tobacco Use?: Yes Tobacco type used: Cigarettes Smoking Status: Current Everyday Smoker Use of E-Cig and/or Vaping dev: No Substance use?: No Alcohol Use?: No Pt feels they are or have been: No Immunizations Up To Date Tetanus Booster (TDap): Unknown First/Initial COVID19 Vaccinat: NO Second COVID19 Vaccination Davi: NO Third COVID19 Vaccination Date: NO Seasonal Allergies Seasonal Allergies: No Past Medical History Surgeries: Yes (STENT 2000, DEFIBRILLATOR 2011) CABG, Coronary Stent, Defibrillator, Orthopedic Respiratory: Yes COPD Cardiac: Yes (STENT, DEFIBRILLATOR, TRIPLE BYPASS) Cardiomyopathy, Coronary Artery Disease, Heart Attack, High Cholesterol, Hypertension, Syncope Neurological: No Reproductive Disorders: No Genitourinary: No Gastrointestinal: Yes Gastroesophageal Reflux Musculoskeletal: No Endocrine: No HEENT: No Loss of Vision: Bilateral Hearing Impairment: Denies Cancer: Yes (SQUAMOUS CELL CA LEFT HAND AND FACE) Skin What Type of Treatment Did You: Surgical Intervention Psychosocial: Yes Depression Integumentary: Yes (SQUAMOUS CELL CA LEFT HAND) Recent Skin Changes Blood Disorders: No Family Medical History No Pertinent Family Hx Physical Exam Vital Signs Vital Signs - First Documented 03/02/23 09:12 Temp 36.2 Pulse 68 Resp 18 B/P (MAP) 189/110 (136) Pulse Ox 91 O2 Delivery Room Air Height, Weight, BMI Height: 5'8.00" Weight: 187lbs. 0.0oz. 84.328913ct; 28.00 BMI Method:Estimated General Appearance: WD/WN, no apparent distress Eyes: bilateral eye normal inspection, bilateral eye PERRL, bilateral eye EOMI Ears: bilateral ear auricle normal, bilateral ear canal normal, bilateral ear TM normal Nose: other (Active bleeding anterior portion of left nare.) Mouth/Throat: normal mouth inspection, other (Dried blood in his posterior oropharynx) Cardiovascular: regular rate, rhythm, no murmur Respiratory: chest non-tender, lungs clear Gastrointestinal: non tender, soft Neurologic/Psychiatric: alert, oriented x 3 Skin: normal color, warm/dry Progress/Results/Core Measures Results/Orders My Orders Orders - ANTONIO DAILEY DO Oxymetazoline 0.05% Nasal Berkey (Afrin 0. (03/02/23 09:14) Oxymetazoline 0.05% Nasal [place] (Afrin 0. (03/02/23 09:30) Vital Signs/I&O Blood Pressure Mean: 136 Departure Impression Primary Impression: Epistaxis Disposition: HOME, SELF-CARE Condition: Stable Departure-Patient Inst. Referrals: [facility] [place] Primary Care Physician Add. Discharge Instructions: If your nosebleed recurs please use the Afrin, 2 sprays in each nostril and then replace the clamp for 30 minutes. Repeat this twice if necessary. If your bleeding does not improve please return to the emergency department after that. Hold your aspirin for the next couple of days. Do not blow your nose or put anything in your nose for the next 48 hours. All discharge instructions reviewed with patient and/or family. Voiced understanding. ANTONIO DAILEY DO Mar 02, 2023 09:44
[2023-03-02 10:23] VITALS: BP 159/92
== END 2023-03-02 10:23 | disposition home or self-care (01) ==
LOC: EDUNIT# 09:03 → ER 09:05
DX: R04.0 Epistaxis (principal); F17.210 Nicotine dependence, cigarettes, uncomplicated; Z79.82 Long term (current) use of aspirin
CPT/HCPCS: 99284